=== PATIENT | female | born 1960 | race Caucasian/White ===

== ENCOUNTER 2023-01-15 15:12 | Emergency (ER) | payer BC, SELFPAY ==
[2023-01-15 15:20] VITALS: BP 127/84; PULSE 70; RESP 18; TEMP 36.8; O2SAT 100; BMI 28.8
--- NOTE | 2023-01-15 15:39 | ED.FALL ---
HPI - Fall General Time Seen by Provider: 15:39 Date Seen: 01/15/23 Chief Complaint: Fall/Minor Trauma Stated Complaint: Fell, hit head/hands/knees Time Seen by Provider: 01/15/23 15:24 Source: patient and RN notes reviewed Mode of arrival: ambulatory Limitations: no limitations History of Present Illness HPI Narrative: Patient is a 62-year-old female that is ambulatory to the ED of her own accord. She tripped going into a store down [facility]. It had a small step up that she did not notice at the time as she was reading the sign on the door. She fell forward hitting her left forehead on the edge of the door jam. No loss of consciousness, no neck pain. She did sustain a laceration that did bleed. She has a little bruising outside the left lower eyebrow. Denies any visual changes. She has a mild headache. She did bruise her right elbow and then land on her knees, states she has bruising on her knees. She can mobilize her elbow, can ambulate on her legs without any bony pain per her report. Did discuss imaging of her elbow and her knees but she declines. She states her tetanus is up-to-date. Nothing else was injured. She is most worried about her head. Did discuss head CT imaging which she would like us to do. Reviewed with her that at this time she very likely does not have significant intracranial bleeding or pathology but sometimes we do find small brain bleeds which would require follow-up. She would like to proceed with a head CT. She understands that the laceration on her forehead is recommended for closure. I would recommend suturing. She denies any other indication for the fall other than the step being there. There was nothing cardiac or loss of consciousness that precipitated this fall. She is feeling like a headache is developing. complaint: fall Related Data Allergies Allergy/AdvReac Type Severity Reaction Status Date / Time fluconazole [From Diflucan] Allergy Verified 01/15/23 15:19 Review of Systems Status of ROS: Reports: 10 or more systems reviewed and unremarkable except as noted in History and below [facility] PFS Social History Smoking Status: Never smoker Do you use any of these nicotine containing products: None Second hand tobacco smoke exposure: No How often do you have a drink containing alcohol: never How often do you have six or more drinks on one occasion: Never AUDIT-C Alcohol total score: 0 Non-prescribed substance use: denies use service: No Exam Const: Vital Signs, click to edit/add: Vital Signs - 24 hr 01/15/23 15:20 Temperature 98.2 F Pulse Rate [Pulse Oximeter] 70 Respiratory Rate 18 Blood Pressure [Ri ght Forearm] 127/84 Pulse Oximetry 100 Oxygen Delivery Me thod Room Air Documenting provider has reviewed patient's vital signs: yes Common normals: no apparent distress, average body habitus, oriented x3, no limitations, healthy appearing, alert and well nourished General appearance: cooperative, comfortable, well kempt and well developed HENMT: Common normals: hearing grossly normal bilaterally, external ears normal, external nose normal, nasal mucous membranes and turbinates normal, moist oral mucous membranes and oropharynx normal Nose: external nose normal and nasal mucous membranes and turbinates normal External ear: external ears normal Other: Feels like her teeth her occluding normally. Has a vertically situated laceration that is about 2 cm through the subcutaneous tissue on the left frontal forehead. No active bleeding at this time. Wound is mildly gaping and would benefit from closure with stitches. Small little bruise on the undersurface of the lateral aspect of her left eyebrow. Eye: Common normals: PERRL, EOMs intact bilaterally, conjunctivae normal and no scleral icterus Conjunctiva: conjunctiva(e) normal Pupil: PERRL Neck & C-Spine: Common normals: full ROM (No pain with range of motion, no midline tenderness, no paraspinous tendern), no lymphadenopathy and supple Resp: Common normals: normal respiratory effort, no retractions, no use of accessory muscles and clear to auscultation bilaterally Auscultation: clear to auscultation bilaterally Cardio: Common normals: regular rate, regular rhythm, S1 normal heart sound, S2 normal heart sound, no gallops, no clicks and no murmurs Rate: regular rate Rhythm: regular rhythm Heart sounds: S1 normal and S2 normal Extremity: Other: Do not see any open wounds over the elbow. She complains of some pain over the olecranon process but not while I am examining or palpating the olecranon. There is no significant effusion, no pain with flexion extension supination pronation, range of motion does not seem to elicit any pain. Motor function is normal throughout the arm. She has a very mild superficial bruise over the anterior left knee, larger bruise over the anterior right knee with a little bit of inferior abrasion below it. There is no joint line tenderness, patient states she can not ambulate without any pain in the knees. There is superficial pain of the bruised areas but no evidence of any underlying bony pathology on examination. Neuro: Foreign Coma Scale: document GCS findings Foreign coma scale eye opening: Spontaneous (4) Foreign coma scale verbal response: Orientated (5) [place] coma scale motor response: Obey commands (6) Foreign coma scale total score: 15 Common normals: oriented x3, moves all extremities, no focal motor deficits and gait normal Sensorium/orientation: alert Psych: Appearance: well kempt Course Course Hospital Course: Will anesthetize this wound, have ED staff irrigate and then plan for closure with sutures. She is declining imaging of her elbow in her knees, agree that it is likely she does not have any underlying fractures but did offer to x-ray her right elbow in both of her knees. Will proceed with a head CT to rule out any intracranial pathology or fracture. She states her tetanus is up-to-date Vital Signs Vital signs: Initial Vital Signs Temperature 98.2 F 01/15/23 15:20 Temperature Source Temporal Artery Scan 01/15/23 15:20 Pulse Rate 70 01/15/23 15:20 Pulse Rhythm Regular 01/15/23 15:20 Respiratory Rate 18 01/15/23 15:20 Blood Pressure 127/84 01/15/23 15:20 Blood Pressure Mean 98 01/15/23 15:20 Blood Pressure Position Supine 01/15/23 15:20 Pulse Oximetry 100 01/15/23 15:20 Oxygen Delivery Method Room Air 01/15/23 15:20 Vital Signs Temperature 98.2 F 01/15/23 15:20 Pulse Rate 70 01/15/23 15:20 Respiratory Rate 18 01/15/23 15:20 Blood Pressure 127/84 01/15/23 15:20 Pulse Oximetry 100 01/15/23 15:20 Oxygen Delivery Method Room Air 01/15/23 15:20 Temperature 98.2 F 01/15/23 15:20 Pulse Rate 70 01/15/23 15:20 Respiratory Rate 18 01/15/23 15:20 Blood Pressure 127/84 01/15/23 15:20 Pulse Oximetry 100 01/15/23 15:20 Oxygen Delivery Method Room Air 01/15/23 15:20 MDM - Fall Imaging Data CT scan - head: Attestation: I have reviewed the pertinent imaging results. Radiologist's impression: Patient: TAMIKO ANTUNEZ Facility:?[facility] Patient ID:?[id number] Site Patient ID:?[id number]. Site :?[id number] Study:?CT Head w/o-01/15/2023 4:53:30 PM Ordering Physician:?Wilber Kurtz Final Report: INDICATION: Fall with head laceration. TECHNIQUE: CT head without contrast. COMPARISON: None. FINDINGS: CSF spaces: Within normal limits for age. Brain parenchyma and extra-axial spaces: The guthrie-white differentiation is normal. No sign of mass, hemorrhage, or midline shift. No extra-axial fluid collection. Skull base and calvarium: The visualized paranasal sinuses and mastoid air cells demonstrate no acute or significant findings. The visualized orbits are grossly unremarkable. No skull fractures. IMPRESSION: Unremarkable noncontrast head CT. Please note that all CT scans at this facility use dose modulation, iterative reconstruction, and/or weight-based dosing when appropriate to reduce radiation dose to as low as reasonably achievable. Dictated by Issa Jones MD @ 01/15/2023 5:15:25 PM (Electronic Signature) Discharge Plan Discharge Clinical Impression: Forehead laceration, Fall, Contusion of knee, left, Contusion of elbow, right, Contusion of knee, right Patient Disposition: Home, Self-Care Condition: Stable Instructions: Care For Your Stitches (ED), Laceration (ED), Contusion in Adults (ED) Additional Instructions: Need to schedule a clinic follow-up in about 1 weeks time to assess the wound for suture removal. Use bacitracin or Vaseline to the wound 3 to 4 times a day. May shower, be careful to not disrupt the stitches. There is concern for infection, please seek re-evaluation. Can use bandage over the wound if needed. Use Tylenol and ibuprofen if needed for pain control, follow bottle directions for dosing. Can ice your forehead, right elbow, anterior knees to help diminish pain and swelling. Activity Level: Activity as Tolerated Follow Up/Referrals: Provider,Not a Local [Primary Care Provider] - Stand Alone Forms: [facility] Info Instructions Procedures Laceration Laceration 1: Pre procedure diagnosis: Forehead laceration Post procedure diagnosis: Same Site marking: not applicable Verification/time out: correct patient, correct site and correct procedure Name of person performing procedure: Tessie Merino Site: face Side (If applicable): left (Forehead) Size (cm): 2 Description: linear Depth: simple, single layer Local Anesthetic: lidocaine 1% and with epi Amount of anesthesia used (mL): 5 (About 4 mL infiltrated with good affect) Pre-repair: wound explored, irrigated extensively and deep structures intact Skin layer closed with: other (Ethilon) Size (cm): 4-0 Number of sutures: 6 Technique: simple, interrupted Wound cleansing: sterile water Estimated blood loss (if any): none Conclusion: patient tolerated procedure
--- OUTSIDE RECORDS SUMMARY | 2023-01-15 16:09 | XMS_ITS | Continuity of Care Document ---
Author Name Unknown Organization [facility] Address [address] [address] [place] [address] Phone Care Team Providers Care Bid Clerk Name Role Phone Mele Ahuja CRNA Unavailable Unavailable Allergies, Adverse Reactions, Alerts Substance Reaction Status Criticality fluconazole itchy Active No Information metronidazole Active No Information Medications Medication Instructions Dosage Effective Dates (start - stop) Status Comments omeprazole 20 mg capsule,delayed release take 1 capsule by ORAL route every day before a meal 20 MG - Active simvastatin 20 mg Tab Take 1 tablet by mouth daily - Active aspirin 81 mg Tab Take one tablet by mouth daily - Active bupropion HCl SR 150 mg Tab Take one tablet by mouth daily - Active fluoxetine 20 mg Cap Take two tablets by mouth daily - Active VITAMIN D3 (unknown strength) take 1 by Oral route every day Not Available - Active lansoprazole 30 mg Cap, Delayed Release Take one tablet by mouth daily - No Longer Active Procedures Procedure Date Colonoscopy Flex; Dx (sep Pro) 20 Colonoscopy Flex; Dx (sep Pro) 10 Advance Directives Directive Yes / No Effective Date File Name No Information Encounters Encounter Description Practice Location Reason(s) For Visit Diagnoses Date Provider Providers Copied on Encounter [facility], [address] [address], [place], [place], [id number], [place] tel:[phone] Meno [facility] No Information 0 [place] Shabazz. [address] [facility], [address], [id number], [place]. tel:[phone] Referring Provider: Gerardo Guzman, [address] [address], [place], [address]. tel:[phone] [facility], [address] [address], [facility] [place], [id number], [place] tel:[phone] [facility] Screening ColonoscopyEnco unter for screening for malignant neoplasm of colon Sep-2 0 Melchor Carrillo. [address] [facility], [facility] [[email or web address] [address], [place], [place], [id number], [place]. tel:[phone] Referring Provider: Carolann Dailey MD, [address], [place], [address]. [phone] [facility], [address] [address], [facility] [place], [place], [id number], [place] tel:[phone] [facility] Endoscopy Center No Information Sep-2 0 Jim Cain. [address] [facility], [facility] [[email or web address] [address], [place], [place], [id number], [place]. tel:[phone] [facility], [address] [address], [facility] [place], [place], [id number], [place] tel:[phone] [facility] Endoscopy Center Colon Cancer ScreeningColon Cancer Screening 3-201 0 No Information Referring Provider: Qamar OSORIO V, [address], [place], [address]. tel:[phone] Family History Family Member Type Diagnosis Age At Onset Son Problem (finding) Alive and well Father Problem (finding) alcoholism Mother Problem (finding) gallbladder disease Father Problem (finding) malignant neoplasm of l niranjan Daughter Problem (finding) Alive and well Father Problem (finding) Thyroid disorder Brother Problem (finding) alcoholism Immunizations Vaccine Date Status Comments tetanus toxoid, reduced diphtheria toxoid, and acellular pertussis vaccine, adsorbed administered Note: FLORES luque i-directional interface ; Source: Other Registry zoster vaccine recombinant administered N ote: [facility] bi-directional interface ; Source: Other Registry influenza virus vaccine, unspecified formulation administered Note: [facility] bi-di rectional interface ; Source: Other Registry Influenza administered Note: [facility] bi-d irectional interface ; Source: Other Registry Fluzone Quad 6mo or older administered Note: [facility] bi-direct ional interface ; Source: Other Registry Influenza administered Note: [facility] bi-d irectional interface ; Source: Other Registry Influenza, injectable, Madin Lenore Canine Kidney, preservative free, quadrivalent administered Note: RI IC bi- directional interface ; Source: Other Registry influenza virus vaccine, unspecified formulation administered Note: [facility] bi-di rectional interface ; Source: Other Registry Fluzone Quad 6mo or older administered Note: [facility] bi-direct ional interface ; Source: Other Registry Fluzone Quad 6mo or older administered Note: [facility] bi-direct ional interface ; Source: Other Registry Engerix-B administered Note: [facility] bi-d irectional interface ; Source: Other Registry Influenza, seasonal, injectable administe red Note: [facility] bi- directional interface ; Source: Other Registry Engerix-B administered Note: [facility] bi-d irectional interface ; Source: Other Registry Engerix-B administered Note: [facility] bi-d irectional interface ; Source: Other Registry Influenza, seasonal, injectable administe red Note: [facility] bi- directional interface ; Source: Other Registry Influenza, seasonal, injectable administe red Note: [facility] bi- directional interface ; Source: Other Registry Influenza, seasonal, injectable administe red Note: [facility] bi- directional interface ; Source: Other Registry tetanus toxoid, reduced diphtheria toxoid, and acellular pertussis vaccine, adsorbed administered Note: [facility] b i-directional interface ; Source: Other Registry Influenza, seasonal, injecta ble, preservative free administered Note: [facility] bi-direct ional interface ; Source: Other Registry zoster vaccine, live administered Note: M [facility] bi-directional interface ; Source: Other Registry Payers Payer name Insurance type Covered alliance party ID Authoriza tijimena(s) [employer] Of [facility] [id number] Social History Type Description Quantity Date Captured Comments Sex Female Smoking Status No Information Chief Complaint And Reason For Visit No Information Reason For Referral Reason For Referral No Information Plan Of Treatment Date Type Action Status No Information History Of Present Illness Encounter Date Complaint History Of Prese nt Illness No Information Functional Status Date Functional Assessmen t No Information Instructions Date Instruction Additional Infor verna Colon Cancer Prevention Related to Screening Colonoscopy Assessments Type Assessment Date No Information Patient Care Teams Name Effective Dates (start - stop) Status Members No Information
[2023-01-15] MEDS: ACETAMINOPHEN 500 MG TABLET 1000 MG PO (16:11)
[2023-01-15] MEDS: diazePAM 5 MG TABLET 2.5 MG PO (16:11)
--- NOTE | 2023-01-15 16:27 | CRLHL7_ITS ---
For Patients: As a result of the Century Cures Act, medical imaging exams and procedure reports are released immediately into your electronic medical record. You may view this report before your referring provider. If you have questions, please contact your health care provider. INDICATION: Fall with head laceration. TECHNIQUE: CT head without contrast. COMPARISON: None. FINDINGS: CSF spaces: Within normal limits for age. Brain parenchyma and extra-axial spaces: The guthrie-white differentiation is normal. No sign of mass, hemorrhage, or midline shift. No extra-axial fluid collection. Skull base and calvarium: The visualized paranasal sinuses and mastoid air cells demonstrate no acute or significant findings. The visualized orbits are grossly unremarkable. No skull fractures. IMPRESSION: Unremarkable noncontrast head CT. Please note that all CT scans at this facility use dose modulation, iterative reconstruction, and/or weight-based dosing when appropriate to reduce radiation dose to as low as reasonably achievable. Dictated by Issa Jones MD @ 01/15/2023 5:15:25 PM (Electronically Signed)
== END 2023-01-15 17:28 | disposition home or self-care (01) ==
PROVIDERS: Emergency Provider Family Medicine
DX: S01.81XA Laceration without foreign body of other part of head, initial encounter (principal); S80.02XA Contusion of left knee, initial encounter; S80.01XA Contusion of right knee, initial encounter; S50.01XA Contusion of right elbow, initial encounter; W01.198A Fall on same level from slipping, tripping and stumbling with subsequent striking against other object, initial encounter; Y93.01 Activity, walking, marching and hiking; Y92.512 Supermarket, store or market as the place of occurrence of the external cause
CPT/HCPCS: 12011; 70450; 99283; 99284; A9270

== ENCOUNTER 2025-04-18 13:42 | Emergency (ER) | payer MEDICARE, SELFPAY ==
[2025-04-18] VITALS (23 sets, daily range): BP systolic 106–128; BP diastolic 60–99; PULSE 59–82; RESP 12–20; TEMP 35.8; O2SAT 93–99; BMI 29.2
--- OUTSIDE RECORDS SUMMARY | 2025-04-18 13:44 | XMS_ITS | Clinical Summary ---
Author Organization [facility] Address [address] [place] [address] Care Team Providers Care Bottle Hop Name Role Phone Carolann Agosto MD Primary Care Pro vider Allergies Active Allergy Reactions Criticality Noted Date Comments Fluconazole Rash 06/15/2006 Nitroimidazoles Rash 06/15/2006 Metronidazole *Unknown 01/26/2010 Unlisted Allergen (Include Detail In Comments) Rash 05/26/2015 Paraphenylenediamine Medications blood-glucose meterIndications:Diabet es mellitus without complication (HC) Dispense meter as covered by pt ins. E11.9 NIDDM type II - Test 1 time/day. 1 Device 11/10/19 19 Active aspirin (ECOTRIN) 81 mg enteric coated tabletIndications:Aspir in long-term use Take 1 tablet by mouth once daily. DO NOT CRUSH OR CHEW. 30 tablet 11 04/02/20 20 Active fexofenadine (EVANGELINA) 180 mg tabletIndications:Seaso nal allergic rhinitis due to pollen,Seasonal allergies Take 1 tablet by mouth once daily. 90 tablet 3 07/18/20 20 Active blood sugar diagnostic (Contour Next Test Strips) stripIndications:Diabet es mellitus without complication (HC) TEST 1 TIME DAILY 100 Each 3 11/30/19 23 Active lancets (Microlet Lancet)Indications:Diab etes mellitus without complication (HC) Test 1 time/day 100 Each 3 11/30/19 23 Active latanoprost (XALATAN) 0.005 % ophthalmic solution INSTILL ONE DROP INTO RIGHT EYE AT BEDTIME* 04/15/20 23 Active acetaminophen (TYLENOL ORAL) Take by mouth. Active omeprazole (PRILOSEC) 40 mg Delayed-Release capsuleIndications:Farrah roesophageal reflux disease, unspecified whether esophagitis present Take 1 Capsule (40 mg) by mouth once daily before a meal. 90 Capsule 3 05/17/20 24 Active atorvastatin 20 mg tabletIndications:Pure hypercholesterolemia Take 1 Tablet (20 mg) by mouth once daily. 90 Tablet 3 01/22/20 25 Active buPROPion 150 mg Extended-Release tabletIndications:Anxie ty state Take 1 Tablet (150 mg) by mouth once daily. 90 Tablet 3 01/22/20 25 Active FLUoxetine 40 mg capsuleIndications:Anxi ety state Take 1 Capsule (40 mg) by mouth once daily in the morning. 90 Capsule 3 01/22/20 25 Active triamcinolone 0.1 % ointmentIndications:Pru vanessa nodularis Apply topically to affected area(s) two times daily. Do not use on face, genitals, or in body folds. 453.6 g 2 01/22/20 25 Active ascorbic acid (vitamin C) (Vitamin C) 500 mg tablet 01/26/20 25 Active Ferrous Sulfate 27 mg iron tab 01/25/20 25 Active Active Problems Problem Noted Date Diagnosed Date Glaucoma of right eye 01/16/2024 Depression, recurrent 01/16/2024 Allergic conjunctivitis of both eyes 07/18/2020 Hematochezia 07/18/2020 Seasonal allergies 07/18/2020 Renal cyst 12/05/2019 Overview (12/05/2019): 18 mm simple renal cyst, 2016 CT Anemia 12/06/2014 Urinary incontinence, mixed 08/16/2012 Pure hypercholesterolemia 07/10/2008 Papanicolaou smear of cervix with low grade squamous intraepithelial lesion (LGSIL) 02/13/2008 Esophageal reflux 01/02/2007 Attention deficit disorder without mention of hy peractivity 01/02/2007 DIABETES MELLITUS TYPE II 10/13/2006 Anxiety state, unspecified Resolved Problems Problem Noted Date Diagnosed Date Resolved Date Asthma, unspecified asthma s everity, unspecified whether complicated, unspecified whether persistent 04/24/2021 11/20/2021 HLD (hyperlipidemia) 08/08/2014 015 Chest pain 08/08/2014 03/24/2015 Low back pain 07/15/2008 03/24/2015 Neck pain 07/15/2008 03/24/2015 Thoracic spine pain 07/15/2008 03/24/20 15 Muscular deconditioning 07/15/200802/25 Need for desensitization to allergens 01/02/2007 03/24/2015 Encounters Date Type Department Care Team Description 04/16/2025 Telephone [facility] [id number] [place] [address] Julian Santos, PT Failed Appointment (Spoke with patient regarding missed apt. and reminded of upcoming appointment. Patient noting a last minute emergency came up and tried to alert the clinic but was unable to. Pt. noting she intends on attending next weeks apt.) 04/09/2025 10:45 AM CDT - 04/09/2025 11:59 PM CDT Hospital Encounter [facility] [address] [address] Carolann Agosto MD Eliason, Andrea, PT 04/09/2025 Travel 03/12/2025 2:58 PM CDT - 03/12/2025 11:59 PM CDT Hospital Encounter [facility] [address] [address] Carolann Agosto MD Press, Tosha, DPT 03/12/2025 Travel 03/07/2025 12:53 PM CDT - 03/07/2025 11:59 PM CDT Hospital Encounter [facility] [address] [address] Carolann Agosto MD Eliason, Andrea, PT 03/07/2025 Travel 02/20/2025 10:15 AM CDT - 02/20/2025 11:59 PM CDT Hospital Encounter [facility] [address] [address] Carolann Agosto MD Holm, Kaitlyn A, PT Chronic right shoulder pain 02/20/2025 Travel 02/16/2025 Orders Only [facility] [address] [place] [address] Carolann Agosto MD Lab 02/16/2025 Orders Only [facility] [address] [place] [address] Carolann Agosto MD <No scans attached> 02/13/2025 Telephone [facility] [address] [place] [address] [address] Carolann Agosto MD Referral (Physical Therapy ) 02/04/2025 1:25 PM CDT Telemedicine [facility] [address] [place] [address] [address] Carolann Agosto MD Telehealth (Anemia F/U) 02/04/2025 Travel 02/01/2025 9:15 AM CDT Orders Only [facility] [address] [place] [address] Lab, [facility] 01/31/2025 Travel 01/30/2025 2:30 PM CDT Ancillary Procedure [facility] [address] [place] [address] 01/30/2025 Travel 01/22/2025 Orders Only [facility] [address] [place] [address] Carolann Agosto MD <No scans attached> 01/21/2025 2:30 PM CDT Office Visit [facility] [address] [facility] [address] [place] [address] Rosa Horne, DO Derm Problem 01/21/2025 10:05 AM CDT Office Visit [facility] [address] [place] [address] Carolann Agosto MD Diabetes; Medicare WELCOME Visit 01/21/2025 Travel 01/18/2025 Orders Only [facility] Scanner 1 scan: (1-Ord) [place] [facility]OLOGY, INTERSTIM, OVERACTIVE BLADDER, 01/18/2025 from Last 3 Months Immunizations Immunization Administration Dates Next Due AMB INFLUENZA, IIV4 (AGE=>6M OS) MDV (Flu Clinic Only) 06/26/2020 AMB Influenza, IIV4 PF (=>6 mos Flulaval,Fluzone Fluarix)(Flu Clinic Only) 08/18/2015 COVID-19 VACCINE SPIKEVAX (M ODERNA 50MCG/0.5ML) 12YO+ PFS 10/01/2024,07/20/2023 COVID-19 vaccine (Moderna 100mcg/0.5mL) PF, MDV 09/28/2021,01/04/2021,12/07/2020 COVID-19 vaccine (Moderna 50mcg/0.5mL) 12YO+ BIVALENT PF, MDV 09/11/2022 Covid-19 Vaccine (Unspecified) 09/28/2021,2020,07/10/2021 Hepatitis B (Adult) 10/29/2013,05/03/2013,2012 Hepatitis B, Unspecified 10/29/2013,05/03/2013,0 03/21/2013 Influenza RIV4 (Age 18+ Year s) PRESERV FREE 09/11/2022,07/30/2021,07/12/2020 Influenza Virus, Unspecified 06/26/2023, 07/10/2022,07/10/2021,2020,07/10/2019,07/05/2019,06/30/2017,1 ,07/10/2014,07/09/2013 Influenza, IIV3 (Age 6-35 mos) 07/28/2009 Influenza, IIV3 (Age >=3 years) 07/31/20 13,07/06/2012,07/09/2011,2009 Influenza, IIV4 07/20/2023,06/23/2018,07/11/2014 Influenza, IIV4 (=>6mos) MDV 07/05/2019,06/30/20 17 Influenza, Inactivated IIV3 (Age 65+ Years) Preserv Free 10/01/2024 Influenza,CCIIV4 PRESERV FREE 06/26/2017 Pneumococcal Poly,23-Valent (Pneumovax) 07/10/2022,07/10/2021,04/24/2021 Pneumococcal, Unspecified 06/26/2023,07/10/2021, 06/26/2021 Tdap 02/15/2021,04/02/2020,01/12/2010 Zoster (Shingrix-RZV, recombinant) 08/04/2020, Zoster (Zostavax-ZVL, live) 05/23/2005, 1 Family History Medical History Relation Name Comments Stroke Brother 2 Fatal Brain Ane urysm age 36 Allergies Child Saad Alcoholism Father Arthritis Father Heart Disease Father [place] age 48: tri ple CABG x2, bilat carotid artery disease Hypertension Father Lung cancer Father lung age 7 2 Alzheimer's disease Mother Arthritis Mother Hyperlipidemia Mother Hypertension Mother Macular degeneration Mother Cancer-breast Other Pat. Gr. Grma Diabetes Paternal Grandmother Glaucoma Sister Asthma Son Felipe Cancer-ovarian No Family History Relation Name Status Comments Brother 1 (Age 36) Brain Aneu rysm Brother 2 Brother 3 Child Father (Age 73) lung CA Maternal Grandmother Mother Other Paternal Grandmother Sister Son Social History Tobacco Use Types Packs/Day Years Used Date Smoking Tobacco: Former Cigarettes 2 9.2 0 09/26/1972 - 12/15/1981 Smokeless Tobacco: Never Alcohol Use Standard Drinks/Week Comments No 0 (1 standard drink = 0.6 oz pur e alcohol) Recovering since 1980 PHQ-2 Answer Date Recorded PHQ-2 TOTAL SCORE 0 01/21/2025 Social Connections Answer Date Recorded Do you often feel lonely or isolated from those around you? 0 01/21/2025 Financial Resource Strain Answer Date R ecorded Difficulty of Paying Living Expenses 3 01/21/2025 Difficulty of Paying Living Expenses Not on file 01/21/2025 Food Insecurity Answer Date Recorded Do you worry your food will run out before you are able to buy more? 1 01/21/2025 Transportation Needs Answer Date Record ed Does lack of transportation keep you from medica l appointments? 1 01/21/2025 Does lack of transportation keep you from work, meetings or getting things that you need? 1 01/21/2025 Housing Stability Answer Date Recorded What is your housing situation today? 1 01/21/2025 Utilities Answer Date Recorded Do you have trouble paying f or utilities (for example, heat, electricity, water, phone)? 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 Not on file Not on file Not on f ile Obstetrics History Para Term AB IAB SAB Ectopic Multiple Livin g Live Births 8 3 3 0 2 0 2 0 0 2 3 Date Outcome GA Total Labor Labor/2nd/3rd Weight Sex Type Anes PTL Joelle A1 A5 Name Clin SAB SAB Term Term Term 1978 40w 0d 5h 00m/ 2.15 kg (4 lb 12 oz) F Vag Livin g Comments:Stillborn 1981 40w 0d 4 kg (8 lb 13 oz) M Vag Livin g 1995 40w 0d 3.69 kg (8 lb 2 oz) M VAGINAL FORC Livin g Last Filed Vital Signs Vital Sign Reading Time Taken Comments Blood Pressure 112/80 01/21/2025 10:39 AM CDT Pulse 76 01/21/2025 10:39 AM CDT Temperature 36.8 C (98.2 F) 10/01/2024 10:11 AM CUSTOMER RESOURCE SPECIALIST Respiratory Rate 19 12/28/2022 1:04 PM CDT Oxygen Saturation 98% 10/01/2024 10: 11 AM CUSTOMER RESOURCE SPECIALIST Inhaled Oxygen Concentration - - Weight 76.1 kg (167 lb 12.8 oz) 025 10:39 AM CDT Height 160 cm (5' 2.99) 01/21/2025 10: 39 AM CDT Body Mass Index 29.73 01/21/2025 10:39 AM CDT Plan of Treatment Upcoming Encounters Date Type Department Care Team (Late st Contact Info) Description 04/23/2025 11:45 AM CDT Appointment [facility] [address] [place] [address] Tosha Penaloza, DPT [address] [address] 04/30/2025 11:45 AM CDT Appointment [facility] [address] [place] [address] Clara Fulton, PT [address] [place] [address] 06/04/2025 2:30 PM CDT Office Visit [facility] [address] [address] [place] [address] [place] [address] 06/13/2025 12:55 PM CDT Office Visit [facility] [address] [place] [address] Carolann Agosto MD [address] [place], [place] [id number] Health Maintenance Due Date Last Done Comments HIV for age 15-65 1974 Pneumococcal series for age 50+ (2 of 2 - PCV) 06/26/2024 06/26/2023, 07/10/2022, 07/10/2021, Additional history exists DEXA/DXA scan for age 65+ 2024 12/14/2022, COVID-19 vaccine series ( season) 2025 10/01/2024, 07/20/2023, 09/11/2022, Additional history exists Influenza Vaccine (#1) 2025 , 07/20/2023, 06/26/2023, Additional history exists BMI (ht and wt on same day) for age 18+ 01/21/2026 01/21/2025, 10/01/2024, 05/17/2024, Additional history exists Medicare Wellness for age 65+ 01/22/2026 01/21/2025 Depression screening for age 12+ 01/29/2026 01/29/2025, 01/21/2025, 01/21/2025, Additional history exists Mammogram for age 45-75 01/30/2026 01/31/20 25, 08/10/2023, 11/09/2022, Additional history exists Pap test for age 21-65 02/24/2028 , 02/23/2023, 07/23/2019, Additional history exists Lipids for age 45-75 01/21/2030 01/21/2025, 01/16/2024, 11/29/2022, Additional history exists Colonoscopy through age 75 06/23/2030 06/23/2020, Tetanus booster 02/15/2031 02/15/2021, 0704/2020, 01/12/2010 RSV vaccine for adults or (1 - 1-dose 75+ series) 2034 Hepatitis B series for 19+ Completed 10/29, 10/29/2013, 05/03/2013, Additional history exists Hepatitis C screening for ag e 18-79 Completed 04/02/2020 Zoster (shingles) series for age 50+ Completed 08/04/2020, 04/02/2020, 05/23/2005, Additional history exists Medical Devices Implanted Type Area Forensic Investigator Device Identifier Shelf Expiration Date Model / Serial / Lot Lead Tined 28cm Interstim - [id number] Implanted:Qty: 1 on 08/01/2014 by Britany Longoria MD at [facility] Right: Sacrum Medtr[employer] Pain Therapy 02/11/2018 [id number] / / [id number] Stimulator Neuro Interstim Ii - [id number] Implanted:Qty: 1 on 08/01/2014 by Britany Longoria MD at [facility] Right: Sacrum [employer] Pain Therapy 07/23/2015 [id number]# / [id number] / [id number] - [id number] Implanted:Qty: 1 on 12/06/2014 by Britany Longoria MD at [facility] N/A: Vagina Coloplast Yesi 01/24/2016 [id number] / [id number] / [id number] Description:Altis Single Inc ision Sling Lead Kit 4.32mm Spacing 28cm Length Interstim - [id number] Implanted:Qty: 1 on 11/25/2021 by Jillian Simmons MD at [facility] N/A: Buttock Medtronic Pain Therapy 04/27/2023 [id number] / / [id number] Medtronic Interstim X Implanted:Qty: 1 on 11/25/2021 by Jillian Simmons MD at [facility] N/A: Buttock Medtronic 05/23/2023 [id number] / [id number] / Procedures Procedure Name Priority Date/Time Associated Diagnosis Comments OCCULT BLOOD IFOBT STOOL Routine 02/12/2025 1:00 PM CDT Iron deficiency anemia, unspecified iron deficiency anemia type PERIPHERAL BLD MORPHOLOGY Routine 02/01/2025 9:13 AM CDT Anemia of unknown etiology BASIC METABOLIC PANEL Add On 02/01/2025 9:13 AM CDT Hyponatremia CBC WITH AUTO DIFFERENTIAL Routine 02/01/2025 9:13 AM CDT Anemia of unknown etiology FERRITIN Routine 02/01/2025 9:13 AM CDT Anemia of unknown etiology IRON PLUS IRON BINDING CAP Routine 02/01/2025 9:13 AM CDT Anemia of unknown etiology RETICULOCYTES Routine 02/01/2025 9:13 AM CDT Anemia of unknown etiology CBC WITH AUTO DIFFERENTIAL Routine 02/01/2025 9:13 AM CDT Anemia of unknown etiology XR MAMMO LION BILAT SCREEN Routine 01/30/2025 3:13 PM CDT Visit for screening mammogram BASIC METABOLIC PANEL Routine 01/21/2025 10:20 AM CDT DIABETES MELLITUS TYPE II LIPID PANEL W REFLEX MEASURED LDL Routine 01/21/2025 10:20 AM CDT Pure hypercholesterolemia HEMOGLOBIN Routine 01/21/2025 10:20 AM CDT Low hemoglobin HEMOGLOBIN A1C MONITORING (POCT) Routine 01/21/2025 10:19 AM CDT DIABETES MELLITUS TYPE II SCAN-OPERATIVE/PROC EDURE REPORT 01/18/2025 12:00 AM CDT HPV HIGH RISK Routine 02/23/2023 12:00 PM CDT XR DXA BONE DENSITY 2 SITES AXIAL Routine 12/14/2022 2:56 PM CDT Asymptomatic postmenopausal state SCAN-COLONOSCOPY 06/23/2020 8:30 AM CDT ANTI HCV Add On 04/02/2020 9:34 AM CDT Need for hepatitis C screening test from Last 3 Months or Most Recently Relevant to Health Maintenance Results * OCCULT BLOOD IFOBT STOOL (02/12/2025 1:00 PM CDT) STOOL BLOOD ,IFOBT Negative Negative 02/19/2025 8:00 PM CDT [facility] Stool STOOL SPECIMEN / Unknown Non-Blood / Unknown 02/12/2025 1:00 PM CDT 02/16/2025 3:17 PM CDT us Carolann Agosto MD LABORATORY F inal Result [facility] [address] [place] [address], * (ABNORMAL) CBC WITH AUTO DIFFERENTIAL (02/01/2025 9:13 AM CDT) WHITE BLOOD COUNT 7.8 4.5 - 11.0 thou/cu mm 02/01/2025 4:03 PM [facility] RED BLOOD COUNT 4.14 4.00 - 5.20 mil/cu mm 02/01/2025 4:03 PM [facility] HEMOGLOBIN 9.8(L) 12.0 - 16.0 g/dL 02/01/2025 4:03 PM [facility] HEMATOCRIT 31.9(L) 33.0 - 51.0 % 02/01/2025 4:03 PM [facility] MCV 77(L) 80 - 100 fL 02/01/2025 4:03 PM [facility] MCH 23.7(L) 26.0 - 34.0 pg 02/01/2025 4:03 PM [facility] MCHC 30.7(L) 32.0 - 36.0 g/dL 02/01/2025 4:03 PM [facility] RDW 18.4(H) 11.5 - 15.5 % 02/01/2025 4:03 PM [facility] PLATELET COUNT 386 140 - 440 thou/cu mm 02/01/2025 4:03 PM [facility] MPV 10.1 6.5 - 11.0 fL 02/01/2025 4:03 PM [facility] NRBC 0.0 % 02/01/2025 4:03 PM [facility] ABS NRBC 0.0 thou /cu mm 02/01/2025 4:03 PM [facility] % NEUT 65.7 % 02/01/2025 4:03 PM [facility] % LYMPH 21.7 % 02/01/2025 4:03 PM [facility] % MONO 8.1 % 02/01/2025 4:03 PM [facility] % EOS 3.5 % 02/01/2025 4:03 PM CDT [facility] % BASO 0.9 % 02/01/2025 4:03 PM CDT [facility] % IMMATURE GRAN (METAS,MYELOS,CO OS) 0.1 % 02/01/2025 4:03 PM CDT [facility] ABSOLUTE NEUTROPHILS 5.1 1.7 - 7.0 thou/cu mm 02/01/2025 4:03 PM CDT [facility] ABSOLUTE LYMPHOCYTES 1.7 0.9 - 2.9 thou/cu mm 02/01/2025 4:03 PM CDT [facility] ABSOLUTE MONOCYTES 0.6 <0.9 thou/cu mm 02/01/2025 4:03 PM CDT [facility] ABSOLUTE EOSINOPHILS 0.3 <0.5 thou/cu mm 02/01/2025 4:03 PM CDT [facility] ABSOLUTE BASOPHILS 0.1 <0.3 thou/cu mm 02/01/2025 4:03 PM CDT [facility] ABSOLUTE IMMATURE GRANULOCYTES(MET ,MYELOS,PROS) 0.0 <0.3 thou/cu mm 02/01/2025 4:03 PM CDT [facility] Blood BLOOD SPECIMEN / Unknown [facility] Collect / Unknown 02/01/2025 9:13 AM CDT 02/01/2025 9:13 AM CDT us Carolann Agosto MD HEMATOLOGY F inal Result [facility] [address] [place] [address], * PERIPHERAL BLD MORPHOLOGY - ORDER WITH RETIC COUNT AND CBC (02/01/2025 9:13 AM CDT) Case Report Special Hematology Report Case: [id number] Authorizing Provider: Carolann Agosto Collected: 02/01/2025 Krish Alfonso MD Ordering Location: [facility] Received: 02/01/2025 0913 Pathologist: Moustapha Aguilar MD Specimen: Blood 02/04/2025 2:16 PM CDT [facility] Final Diagnosis PERIPHERAL BLOOD: 1. Moderate microcytic, hypochromic anemia consistent with iron deficiency anemia 2. See comment 02/04/2025 2:16 PM CDT [facility] at 1416 CDT Comment The morphologic and laboratory features of this anemia are characteristic of iron deficiency. In the adult population, blood loss is the most common etiology for iron deficiency with gastrointestinal and gynecologic sites (in women) being the most common sites. Malabsorption issues (gastric bypass, Crohn's disease, celiac sprue) and deficient dietary intake are also in the differential. Clinical correlation is recommended. There are no features of hemolysis. This case was also reviewed by Anel Mendoza MT, MS ([facility]). 02/04/2025 2:16 PM CDT [facility] Clinical Information The patient is a 64-year-old female. Pertinent clinical information: New anemia. Per EPIC: Additional history includes diabetes. 02/01/25 09:13 FERRITIN: 16.8 IRON: 24 (L) IRON BINDING CAPACITY : 434 (H) IRON,% SATURATION : 6 (L) UIBC (UNSATURATED) : 410 (H) 02/04/2025 2:16 PM CDT [facility]- ENTRND LABORATORY CBC and Differential HEMATOLOGY PARAMETERS Tested at: [facility] RESULTS EXPECTED VALUES WBC: 7.8 4.5-21l9498/cumm RBC: 4.14 4.00-5.20 mil/cumm HGB: 9.8 12-16 gm/dl DECREASED HCT: 31.9 33-51% DECREASED MCV: 77.0 80-100 fl MICROCYTIC MCH: 23.7 26-34 pg DECREASED MCHC: 30.7 32-36 gm/dl HYPOCHROMIC RDW: 18.4 11.5-15.5% ELEVATED PLT: 386 140-211e2113/uL MPV: 10.1 6.5-11 fl Retic: 1.7 0.5-1.5% ELEVATED Differential Absolute (%) Expected (%) (x10*9/L) (x10*9/L) Neutrophils: 5.1 (65.4) 1.7-7.0 (42-72%) Lymphocytes: 1.7 (21.8) 0.9-2.9 (20-44%) Monocytes: 0.6 (7.7) <0.9 (0-11%) Eosinophils: 0.3 (3.8) <0.5 (0-2%) Basophils: 0.1 (1.3) <0.3 (<3.0%) 02/04/2025 2:16 PM CDT [facility]-C ENTRAL LABORATORY Microscopic Description The final diagnosis is based on microscopic examination of an appropriately stained blood smear. 02/04/2025 2:16 PM CDT [facility]-C ENTRAL LABORATORY Additional Information Interpreted at [facility], Central Laboratory - [address] [place] [address] [address] [address] 02/04/2025 2:16 PM T [facility] EN[facility]AL LABORATORY Blood BLOOD SPECIMEN / Unknown [facility] Collect / Unknown 02/01/2025 9:13 AM CDT 02/01/2025 9:13 AM CDT Comment:CURRENT MEDICATIONSC urrent Outpatient Medications: acetaminophen (TYLENOL ORAL), Take by mouth., Disp: , Rfl: aspirin (ECOTRIN) 81 mg enteric coated tablet, Take 1 tablet by mouth once daily. DO NOT CRUSH OR CHEW., Disp: 30 tablet, Rfl: 11 atorvastatin 20 mg tablet, Take 1 Tablet (20 mg) by mouth once daily., Disp: 90 Tablet, Rfl: 3 blood sugar diagnostic (Contour Next Test Strips) strip, TEST 1 TIME DAILY, Disp: 100 Each, Rfl: 3 blood-glucose meter, Dispense meter as covered by pt ins. E11.9 NIDDM type II - Test 1 time/day., Disp: 1 Device, Rfl: 0 buPROPion 150 mg Extended-Release tablet, Take 1 Tablet (150 mg) by mouth once daily., Disp: 90 Tablet, Rfl: 3 fexofenadine (EVANGELINA) 180 mg tablet, Take 1 tablet by mouth once daily., Disp: 90 tablet, Rfl: 3 FLUoxetine (PROZAC) 20 mg capsule, TAKE ONE CAPSULE BY MOUTH ONE TIME DAILY in combination with 40mg capsule for a total dose of 60mg daily., Disp: 90 Capsule, Rfl: 1 FLUoxetine 40 mg capsule, Take 1 Capsule (40 mg) by mouth once daily in the morning., Disp: 90 Capsule, Rfl: 3 lancets (Microlet Lancet), Test 1 time/day, Disp: 100 Each, Rfl: 3 latanoprost (XALATAN) 0.005 % ophthalmic solution, INSTILL ONE DROP INTO RIGHT EYE AT BEDTIME*, Disp: , Rfl: omeprazole (PRILOSEC) 40 mg Delayed-Release capsule, Take 1 Capsule (40 mg) by mouth once daily before a meal., Disp: 90 Capsule, Rfl: 3 triamcinolone 0.1 % ointment, Apply topically to affected area(s) two times daily. Do not use on face, genitals, or in body folds., Disp: 453.6 g, Rfl: 2 us Carolann Agosto MD HEMATOLOGY F inal Result [facility] [address] [place] [address], * (ABNORMAL) IRON PLUS IRON BINDING CAP (02/01/2025 9:13 AM CDT) IRON 24(L) 37 - 145 ug/dL 02/01/2025 5:13 PM CDT [facility] UIBC (UNSATURATED) 410(H) 112 - 347 ug/dL 02/01/2025 5:13 PM CDT [facility] IRON BINDING CAPACITY 434(H) 250 - 400 ug/dL 02/01/2025 5:13 PM CDT [facility] IRON,% SATURATION 6(L) 14 - 50 % 02/01/2025 5:13 PM CDT [facility] Blood BLOOD SPECIMEN / Unknown [facility] Collect / Unknown 02/01/2025 9:13 AM CDT 02/01/2025 9:13 AM CDT Carolann Agosto MD CHEMISTRY F inal Result Performing Organization Address [facility] de Phone Number [facility] [address] [place] [address], * (ABNORMAL) RETICULOCYTES (02/01/2025 9:13 AM CDT) Pathologist [facility] RETIC% 1.7(H) 0.5 - 1.5 % 02/01/2025 4:03 PM CDT [facility] RETIC (ABSOLUTE) 0.07 0.03 - 0.08 mil/cu mm 02/01/2025 4:03 PM CDT [facility] Blood BLOOD SPECIMEN / Unknown [facility] / Unknown 02/01/2025 9:13 AM CDT 02/01/2025 9:13 AM CDT Carolann Agosto MD HEMATOLOGY F inal Result Performing Organization Address [facility] de Phone Number [facility] [address] [place] [address], * FERRITIN (02/01/2025 9:13 AM CDT) [facility] FERRITIN 16.8 15.0 - 150.0 ng/mL 02/01/2025 5:12 PM CDT [facility] Blood BLOOD SPECIMEN / Unknown [facility] / Unknown 02/01/2025 9:13 AM CDT 02/01/2025 9:13 AM CDT Carolann Agosto MD CHEMISTRY F inal Result Performing Organization Address [facility] Co de Phone Number [facility] [address] [place] [address], * (ABNORMAL) BASIC METABOLIC PANEL (02/01/2025 9:13 AM CDT) Only the most recent of2 resultswithin the time period is included. Pathologist [facility] SODIUM 134(L) 136 - 145 mmol/L 02/04/2025 2:13 PM T [facility] POTASSIUM 5.0 3.5 - 5.1 mmol/L 02/04/2025 2:13 PM T [facility] CHLORIDE 95(L) 98 - 107 mmol/L 02/04/2025 2:13 PM T [facility] CO2,TOTAL 21(L) 22 - 29 mmol/L 02/04/2025 2:13 PM T [facility] ANION GAP 18 5 - 18 02/04/2025 2:13 PM T [facility] GLUCOSE 124(H) 70 - 99 mg/dL 02/04/2025 2:13 PM T [facility] CALCIUM 9.3 8.8 - 10.4 mg/dL 02/04/2025 2:13 PM [facility] Comment: Reference ranges for this test were updated on 07/31/2024 to reflect our healthy population more accurately. Reference range changes are not retroactively applied to results, but previous results using the same methodology can be interpreted in the context of the new reference range. BUN 10 8 - 23 mg/dL 02/04/2025 2:13 PM [facility] CREATININE 0.94(H) 0.50 - 0.90 mg/dL 02/04/2025 2:13 PM [facility] BUN/CREAT RATIO 11 10 - 20 2:13 PM [facility] eGFR 67(L) >90 mL/min/1. 73m2 02/04/2025 2:13 PM [facility] Comment:As of 2021, eG FR is calculated by the CKD-EPI creatinine equation without race adjustment. eGFR can be influenced by muscle mass, exercise, and diet. The reported eGFR is an estimation only and is only applicable if the renal function is stable. Blood BLOOD SPECIMEN / Unknown [facility] / Unknown 02/01/2025 9:13 AM CDT 02/01/2025 9:13 AM CDT Carolann Agosto MD CHEMISTRY F inal Result [facility] [address] [place] [address], * XR MAMMO LION BILAT SCREEN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
--- OUTSIDE RECORDS SUMMARY | 2025-04-18 13:44 | XMS_ITS | Clinical Summary ---
Author Organization [facility] Address [address] [place] [address] Care Team Providers Care Career Resource Specialist Name Role Phone Elsewhere, Pcp Primary Care Provider Unavailabl e Source Comments Patient records contain information from all sites at [facility]. For routine questions regarding patient records, call [phone] during business hours, M-F 8:00 AM - 5:00 PM Central Time. Record requests for emergency care only can be directed to [phone] at any time.[facility] Allergies Active Allergy Reactions Criticality Noted Date Comments Fluconazole Itching 11/07/2018 Metronidazole Itching 11/07/2018 Medications * This document contains information received from the source organization and may not represent a complete record from that organization. omeprazole (PriLOSEC) [address] capsule Take 40 mg by mouth every morning before breakfast. Active bupropion HCl (WELLBUTRIN ORAL) Take by mouth. Activ e aspirin 81 mg chewable tablet Chew 81 mg daily. Active folic acid-vitamin B6,B12 (FOLBEE) 2.5-25-1 mg per tablet Take 1 tablet by mouth daily. Active albuterol (PROVENTIL HFA,VENTOLIN HFA) 90 mcg/actuation inhaler Inhale 2 puffs every 4 (four) hours as needed for wheezing or shortness of breath. 1 Inhaler 9 Active omeprazole (PriLOSEC) [address] capsule Take by mouth. 0 Active fexofenadine (EVANGELINA) 180 mg tablet Take 180 mg by mouth. 0 Active triamcinolone (KENALOG) 0.1 % cream Apply topically. 0 Active FLUoxetine (PROzac) 40 mg capsule Take 40 mg by mouth. 1 Active omega 1-kjt-eyz-fish oil 1,000 mg (120 mg-180 mg) capsule Take 1,000 mg by mouth. 1 Active multivitamin chewable tablet Chew. 1 Active magnesium oxide (MAG-OX) 400 mg (241.3 mg magnesium) tablet Take 400 mg by mouth. 1 Active fluticasone propionate (FLONASE) 50 mcg/actuation nasal spray Administer 2 sprays into nostril(s). 1 Active atorvastatin (LIPITOR) 20 mg tablet Take 20 mg by mouth daily. 1 Active Active Problems Problem Noted Date Diagnosed Date Anxiety Generalized Disorder 06/13/2021 COVID-19 Infection 06/12/2021 Overview (06/13/2021): Ms. Mosquera tested positive for COVID-19. I have reviewed the chart, updated where appropriate and evaluated for the following: Symptoms of COVID-19 infection? Yes Mild-moderate COVID-19 infection? Yes Health Conditions that meet Emergency Use Authorization criteria for eligibility? Yes PCR or antigen testing? Yes Symptom onset date: Don't know The patient is a candidate for monoclonal antibody therapies, based on the information available to review. They will be added to the list of eligible patients. Not all eligible patients will be offered MAB, as the supply is limited and varies daily. If the infusion therapy center is able to offer a monoclonal antibody infusion, a nurse will send an online message and then call the patient to consent for therapy. Patients are prioritized for monoclonal antibody therapy based on their risk for developing severe complications of COVID-19, including hospitalization and . We use the Monoclonal Antibody Screening Score (MASS) to predict risk, and patients with a Monoclonal Antibody Screening score of one or more have an increased risk of severe complications of COVID-19. Patient-reported biometric data, including age and BMI, will be verified at the infusion site. Discrepancies between patient reported information and clinically confirmed data may make the patient ineligible. Jameson Scott M.D., M.P.H. Assessment & Plan (06/13/2021 7:42 AM CDT): Patient to be consented by the Infusion therapy nurses. 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 No 07/17/2024 Hunger Vital Sign Answer Date Recorded Within the past 12 months, y ou worried that your food would run out before you got the money to buy more. Never true 07/17/20 24 Within the past 12 months, t he food you bought just didn't last and you didn't have money to get more. Never true 07/17/2024 PRAPARE - Transportation Answer Date Re corded In the past 12 months, has l ack of transportation kept you from medical appointments or from getting medications? No 06/27 In the past 12 months, has l ack of transportation kept you from meetings, work, or from getting things needed for daily living? No 07/17/2024 Housing Stability Answer Date Recorded What is your living situation today? I have a [facility] place to live 07/17/2024 Comments No Sex and Gender Information Value Date Recorded Sex Assigned at Not on file Legal Sex Female 12:38 PM NURSING PROGRAM CHAIR Gender Identity Not on file Sexual Orientation Not on file Last Filed Vital Signs Vital Sign Reading Time Taken Comments Blood Pressure 126/74 06/15/2022 11:00 AM CDT Pulse 73 06/15/2022 11:00 AM CDT Temperature 36.9 C (98.4 F) 06/15/2022 11:00 AM CDT Respiratory Rate 20 06/15/2022 11:0 0 AM CDT Oxygen Saturation 98% 06/15/2022 11: 00 AM CDT Inhaled Oxygen Concentration - - Weight 77.4 kg (170 lb 10.2 oz) 024 11:07 AM CDT Height 161 cm (5' 3.39) 07/17/2024 11: 07 AM CDT Body Mass Index 29.86 07/17/2024 11:07 AM CDT Plan of Treatment Health Maintenance Due Date Last Done Comments Bone Density Scan (Osteoporosis Screen) 1959 CT Colonography 1959 Cervical/Vaginal Cancer Screening 1959 Cologuard 1959 Diabetic Office Visit with Foot Exam 1959 Dilated Eye Exam 1959 FIT 1959 HIV Screening 1959 Hepatitis C Screening 1959 Office Visit for Blood Pressure Check / Re-check 1959 Urine Albumin 1959 RSV vaccine - (32-36 weeks) or 60+ years (1 - Risk 60-74 years 1-dose series) 2019 Mammogram 11/09/2023 11/09/2022, 08/27, 08/11/2020 COVID-19 Vaccine ( season) 2024 07/20/2023, 09/11/2022, 09/28/2021, Additional history exists Pneumococcal vaccine (50+ years) (2 of 2 - PCV) 06/26/2024 06/26/2023, 07/10/2022, 07/10/2021, Additional history exists Depression Screening (Annual PHQ-2) 09/26/2024 Fall Risk Screen (Annual) 09/26/2024 Hemoglobin A1C 11/17/2024 05/17/2024, 12/26, 09/01/2023, Additional history exists Creatinine Level (Kidney Function Test) 05/17/2025 05/17/2024, 01/16/2024, 09/01/2023, Additional history exists Influenza Vaccine (#1) 2025 3, 06/26/2023, 09/11/2022, Additional history exists Lipid (Cholesterol) Screening 01/15/2029 01/16/2024, 11/29/2022, 10/26/2021, Additional history exists Colonoscopy 06/23/2030 06/23/2020 Colorectal Cancer Screening 06/23/2030 DTaP,Tdap,and Td Vaccines (4 - Td or Tdap) 02/15/2031 02/15/2021, 04/02/2020, 01/12/2010 Hepatitis B Vaccines Completed 10/29/2013, 05/03/2013, 03/21/2013 Zoster Vaccines Completed 08/04/2020, 04/2020, 05/23/2005, Additional history exists IPV Vaccines Aged Out No longer eligi ble based on patient's age to complete this topic Medical Devices Implanted Type Area Belt Splicer Device Identifier Shelf Expiration Date Model / Serial / Lot Bladder Stimulator Sacral Nerve Stimulator Right: Buttock Procedures Procedure Name Priority Date/Time Associated Diagnosis Comments BASIC METABOLIC PANEL, S/P STAT 08/27/2021 1:01 PM NURSING PROGRAM CHAIR HEMOGLOBIN A1C, B STAT 11/07/2018 1:4 5 PM NURSING PROGRAM CHAIR from Last 3 Months or Most Recently Relevant to Health Maintenance Results * (ABNORMAL) Basic Metabolic Panel (08/27/2021 1:01 PM NURSING PROGRAM CHAIR) Potassium, P 3.7 3.6 - 5.2 mmol/L 08/27/2021 1:24 PM NURSING PROGRAM CHAIR CNFL Sodium, P 132(L) 135 - 145 mmol/L 08/27/2021 1:24 PM NURSING PROGRAM CHAIR CNFL Chloride, P 97(L) 98 - 107 mmol/L 08/27/2021 1:24 PM NURSING PROGRAM CHAIR CNFL Bicarbonate, P 25 22 - 29 mmol/L 08/27/2021 1:24 PM NURSING PROGRAM CHAIR CNFL Anion Gap, P 10 7 - 15 08/27/2021 1:24 PM NURSING PROGRAM CHAIR CNFL BUN (Blood Urea Nitrogen), P 11 6 - 21 mg/dL 08/27/2021 1:24 PM NURSING PROGRAM CHAIR CNFL Creatinine 0.75 0.59 - 1.04 mg/dL 08/27/2021 1:24 PM NURSING PROGRAM CHAIR CNFL eGFR-Black/Afri can Burmese >90 >=60 mL/min/BSA 08/27/2021 1:24 PM NURSING PROGRAM CHAIR CNFL Comment: ----ADDITIONAL INFORMATION---- Estimated GFR calculated using the 2009 CKD_EPI creatinine equation. eGFR Non-Black/Afric an Burmese 86 >=60 mL/min/BSA 08/27/2021 1:24 PM NURSING PROGRAM CHAIR CNFL Comment: ----ADDITIONAL INFORMATION---- Estimated GFR calculated using the 2009 CKD_EPI creatinine equation. Calcium, Total, P 8.7(L) 8.8 - 10.2 mg/dL 08/27/2021 1:24 PM NURSING PROGRAM CHAIR CNFL Glucose, P 121 70 - 140 mg/dL 08/27/2021 1:24 PM NURSING PROGRAM CHAIR CNFL Blood (Blood, Venous) 08/27/2021 1:01 PM NURSING PROGRAM CHAIR 08/27/2021 1:04 PM NURSING PROGRAM CHAIR us Carolann Miranda APRN, C.N.P., D.N.P. LAB BLOOD ADD-ON Final Result Performing Organization Address City/[facility] Co de Phone Number [facility] [address] [place] [address], [facility] [place] [address] * (ABNORMAL) Hemoglobin A1c (11/07/2018 1:45 PM NURSING PROGRAM CHAIR) Hemoglobin A1c, B 6.2(H) 4.2 - 5.6 % 11/07/2018 2:26 PM NURSING PROGRAM CHAIR [facility] Comment: Hemoglobin A1c values of 5.7-6.4 percent indicate an increased risk for developing diabetes mellitus. In diabetic patients, HbA1c goals should be discussed with healthcare provider. Blood (Blood, Venous) 11/07/2018 1:45 PM NURSING PROGRAM CHAIR 11/07/2018 1:52 PM NURSING PROGRAM CHAIR us Darci Jenkins M.D. LAB BLOOD ADD-ON Final Res ult [facility] [id number] [address], [facility] [place] from Last 3 Months or Most Recently Relevant to Health Maintenance Insurance [facility] Care Teams Career Resource Specialist Relationship Specialty Start Date End Date Elsewhere, Pcp PCP - General Family Medicine 11/07/18
--- OUTSIDE RECORDS SUMMARY | 2025-04-18 13:45 | XMS_ITS | Data Portability ---
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 Plan of Treatment Reminders Order Date Submit Date Provider Last Modified By Organization Details Last Modified Time Details Appointments None recorded. Lab urinalysis, dipstick 2023 024 [facility], [address], [address], [place], [address], 4 09:53:35 urinalysis, microscopic 2023 024 [facility], [address], [address], [place], [address], 05:01:02 Referral None recorded. Procedures None recorded. Surgeries None recorded. Imaging None recorded. Medication Orders None recorded. Patient TargetsNo targets recorded. Patient Instructions Encounter Date Encounter Id Patient Instructions Last Modified By Organization Details Last Modified Time 01/31/2023 [id number] Test each progra m for at least 2 weeks, adjusting amplitude as needed. May remain on a program as long as it is effective. Return as needed for reprogramming. [email or web address] Not available 01/31/2023 09:26:48 04/02/2024 [id number] sp interstim revision stim is labial to see payton and myself/PA in 1 year -- will schedule ; to call sooner and be seen if ANY concerns/issues still itchy near the IPG site; no erythema no rash only on the site. hx of vaginal bleeding, Oct. was seen with her pmd --thought she passed a stone but cant say she had hematuria. will check ua for blood and get a pelvic us. she will let me know after she thinks about the event for fu for evaluation on hematuria vs vaginal bleeding as these are very different problems. [email or web address] Not available 04/01/2024 21:42:59 04/02/2024 [id number] Test each progra m for at least 2 weeks, adjusting amplitude as needed. May remain on a program as long as it is effective. Return as needed for reprogramming. [email or web address] Not available 04/02/2024 09:37:06 01/18/2025 [id number] Overactive bladder (OAB): -S/p InterStim revision 11/25/[address] Simmons. -Reviewed overactive bladder care pathway and gave handout: timed voiding, urge suppression strategies, pelvic floor exercises, and avoidance of bladder irritants, pelvic floor physical therapy and OAB medications. -Patient has tried: 2+ meds prior to interstim -Follow up in year, sooner if needed [email or web address] Not available 01/18/2025 11:15:07 01/18/2025 [id number] Test each progra m for at least 2 weeks, adjusting amplitude as needed. May remain on a program as long as it is effective. Return as needed for reprogramming. [email or web address] Not available 01/18/2025 11:49:46 Reason for Referral None Reported. Results Created Date Observation Date Name Description Value Unit Range Abnormal Flag Note LastModifiedBy Organization Detail LastModifiedTime 02/01/2001/31/2023 UA WITHO UT MICRO - CS URISC AN blood - uriscan NEGATI VE negati ve Not Available [facility] [address], [place], [address], 01/31/2023 09:57:03 02/01/20 23 01/31/2023 UA WITHO UT MICRO - CS URISC AN bilirubin - uriscan NEGATI VE mg/dL negati ve Not Available [facility] [address] [place] [address] [address], [place], [address], 01/31/2023 09:57:03 02/01/20 23 01/31/2023 UA WITHO UT MICRO - CS URISC AN urobilinogen - uriscan NORMAL mg/dL normal Not Available [facility] [address] [place] [address] [address], [place], [address], 01/31/2023 09:57:03 02/01/20 23 01/31/2023 UA WITHO UT MICRO - CS URISC AN ketones - uriscan NEGATI VE mg/dL negati ve Not Available [facility] [address] [place] [address] [address], [place], [address], 01/31/2023 09:57:03 02/01/20 23 01/31/2023 UA WITHO UT MICRO - CS URISC AN protein - uriscan NEGATI VE mg/dL negati ve Not Available [facility] [address] [place] [address] [address], [place], [address], 01/31/2023 09:57:03 02/01/20 23 01/31/2023 UA WITHO UT MICRO - CS URISC AN nitrites - uriscan NEGATI VE negati ve Not Available [facility] [address] [place] [address] [address], [place], [address], 01/31/2023 09:57:03 02/01/20 23 01/31/2023 UA WITHO UT MICRO - CS URISC AN glucose - uriscan NEGATI VE mg/dL negati ve Not Available [facility] [address] [place] [address] [address], [place], [address], 01/31/2023 09:57:03 02/01/20 23 01/31/2023 UA WITHO UT MICRO - CS URISC AN pH - uriscan 7.00 5.00-9 .00 Not Available [facility] [address] [place] [address] [address], [place], [address], 01/31/2023 09:57:03 02/01/20 23 01/31/2023 UA WITHO UT MICRO - CS URISC AN sp. gravity - uriscan 1.02 1.01-1 .03 Not Available [facility] [address] [facility] [address], [place], [address], 01/31/2023 09:57:03 02/01/20 23 01/31/2023 UA WITHO UT MICRO - CS URISC AN leukocytes - uriscan NEGATI VE negati ve Not Available [facility] [address] [facility] [address], [place], [address], 01/31/2023 09:57:03 02/01/20 23 01/31/2023 UA WITHO UT MICRO - CS URISC AN color - uriscan YELLOW Not Available [facility] [address] [facility] [address], [place], [address], 01/31/2023 09:57:03 02/01/20 23 01/31/2023 UA WITHO UT MICRO - CS URISC AN clarity - uriscan CLEAR Not Available [facility] [address] [facility] [address], [place], [address], 01/31/2023 09:57:03 02/01/20 23 01/31/2023 UA WITHO UT MICRO - CS URISC AN total urine volume (mL) 10 /mL ----- ----- ----- ----- ----- ----- ----- ----- ----- ----- ----- ----- ----- ----- ---- *Plevalentin caldera note the follo wing minim um quant ities for addit ional urine testi ng: - Atypi cals: 3 mL - Cytol ogy: 20 mL - GC/CH : 2 mL - FISH: 30 mL - Atypi cals w/ GC/CH : 5 mL - Cytol ogy PLUS FISH: 50 mL - Urine Cultu re: 3 mL ----- ----- ----- ----- ----- ----- ----- ----- ----- ----- ----- ----- ----- ----- ---- This lab resul t is being provi ded to you and your provi cortney at the same time in compl iance with the Centu ry Cures Act. Your provi cortney may not have had time to revie w and make recom menda tions based on the resul t. Hank schaeffer allow up to one week for provi cortney revie w. Not Available [facility] [address] [place] [address], [place], [address], 01/31/2023 09:57:03 04/02/20 24 04/02/2024 UA WITHO UT MICRO - CS URISC AN blood - uriscan NEGATI VE negati ve Not Available [facility] [address] [place] [address], [place], [address], 04/02/2024 09:53:35 04/02/20 24 04/02/2024 UA WITHO UT MICRO - CS URISC AN bilirubin - uriscan NEGATI VE mg/dL negati ve Not Available [facility] [address] [place] [address], [place], [address], 04/02/2024 09:53:35 04/02/20 24 04/02/2024 UA WITHO UT MICRO - CS URISC AN urobilinogen - uriscan NORMAL mg/dL normal Not Available [facility] [address] [place] [address] [address], [place], [address], 04/02/2024 09:53:35 04/02/20 24 04/02/2024 UA WITHO UT MICRO - CS URISC AN ketones - uriscan NEGATI VE mg/dL negati ve Not Available [facility] [address] [place] [address], [place], [address], 04/02/2024 09:53:35 04/02/20 24 04/02/2024 UA WITHO UT MICRO - CS URISC AN protein - uriscan NEGATI VE mg/dL negati ve Not Available [facility] [address] [facility] [address], [place], [address], 04/02/2024 09:53:35 04/02/20 24 04/02/2024 UA WITHO UT MICRO - CS URISC AN nitrites - uriscan NEGATI VE negati ve Not Available [facility] [address] [facility] [address], [place], [address], 04/02/2024 09:53:35 04/02/20 24 04/02/2024 UA WITHO UT MICRO - CS URISC AN glucose - uriscan NEGATI VE mg/dL negati ve Not Available [facility] [address] [facility] [address], [place], [address], 04/02/2024 09:53:35 04/02/20 24 04/02/2024 UA WITHO UT MICRO - CS URISC AN pH - uriscan 7.00 5.00-9 .00 Not Available [facility] [address] [place] [address] [address], [place], [address], 04/02/2024 09:53:35 04/02/20 24 04/02/2024 UA WITHO UT MICRO - CS URISC AN sp. gravity - uriscan <=1.01 1.01-1 .03 Not Available [facility] [place] [address] [facility] [address], [place], [address], 04/02/2024 09:53:35 04/02/20 24 04/02/2024 UA WITHO UT MICRO - CS URISC AN leukocytes - uriscan NEGATI VE negati ve Not Available [facility] [address] [place] [address] [address], [place], [address], 04/02/2024 09:53:35 04/02/20 24 04/02/2024 UA WITHO UT MICRO - CS URISC AN color - uriscan YELLOW lt. yellow ;yello w Not Available [facility] [address] [facility] [address], [place], [address], 04/02/2024 09:53:35 04/02/20 24 04/02/2024 UA WITHO UT MICRO - CS URISC AN clarity - uriscan CLEAR clear Not Available [facility] [address] [facility] [address], [place], [address], 04/02/2024 09:53:35 04/02/20 24 04/02/2024 UA WITHO UT MICRO - CS URISC AN total urine volume (mL) 40 /mL ----- ----- ----- ----- ----- ----- ----- ----- ----- ----- ----- ----- ----- ----- ---- *Allegra caldera note the follo wing minim um quant ities for addit ional urine testi ng: - Atypi cals: 3 mL - Cytol ogy: 20 mL - GC/CH : 2 mL - FISH: 30 mL - Atypi cals w/ GC/CH : 5 mL - Cytol ogy PLUS FISH: 50 mL - Urine Cultu re: 3 mL ----- ----- ----- ----- ----- ----- ----- ----- ----- ----- ----- ----- ----- ----- ---- This lab resul t is being provi ded to you and your provi cortney at the same time in compl iance with the Centu ry Cures Act. Your provi cortney may not have had time to revie w and make recom menda tions based on the resul t. Hank schaeffer allow up to one week for provi cortney revie w. Not Available [facility] [address], [place], [address], 04/02/2024 09:53:35 02/10/2002/09/2023 US, pelvi s, trans abdom inal + trans vagin al No observ ation record ed. [email or web address] [facility] [address], [place], [address], 02/10/2023 16:51:06 02/15/20 23 02/09/2023 US, pelvi s, compl ete No observ ation record ed. [email or web address] Not Available 02/14 13:47:07 Result Notes None recorded. 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 N39.46 : Mixed urinary incontine nce Not Available [facility] 0 23:41:50 Overactiv e urinary bladder 858355493 Active 2014 N32.81 : Bladder muscle dysfuncti on - overactiv e Not Available [facility] 0 23:41:50 Right upper quadrant pain 248681057 Active 2015 R10.11 : Right upper quadrant pain Not Available [facility] 0 23:41:50 Urge incontine nce of urine 06675115 Active 2017 N39.41 : Urge incontine nce of urine Not Available [facility] 0 23:41:50 Depressiv e disorder 55327188 Active 2023 JERMAIN Crawford - [facility] 4 09:17:01 Diabetes mellitus 00608972 Active 2023 JERMAIN Crawford - [facility] 4 09:17:25 Gastroeso phageal reflux disease 454558510 Active 2023 JERMAIN Crawford - [facility] 4 09:17:31 Hyperchol esterolem ia 88827285 Active 2023 Mary robin [facility] 4 09:17:39 History of statin therapy 563109577 Active 2023 Mary robin [facility] 4 09:17:47 Long-term current use of aspirin 39351129345 9103 Active 2024 Mary robin [facility] 5 10:37:28 Problem Notes None recorded. Procedures Surgical History Date Name Laterality Status Provider Name and Address Organization Details Recorded Time 01/19/20 25 COMPLEX VISIT completed Zhane Farias [facility] 01/17/2025 14:06:05 01/19/20 25 Sacral neuromodulation w/o reprogramming completed Payton Ferraro [facility] 01/18/2025 11:57:42 04/02/20 24 Bladder Scan completed Marcela Haji [facility] 04/02/2024 09:43:31 04/02/20 24 Sacral Stimulator Reprogramming completed Payton Ferraro [facility] 04/02/2024 10:16:02 02/01/20 23 Sacral neuromodulation w/o reprogramming completed Payton Ferraro [facility] 01/31/2023 09:36:45 01/12/20 22 Sacral neuromodulation w/o reprogramming completed Payton Ferraro [facility] 01/11/2022 15:17:00 12/05/19 22 Sacral neuromodulation w/o reprogramming completed Payton Ferraro [facility] 12/04/2021 17:35:16 11/02/19 22 Past Data Reviewed completed Jillian Simmons MD [address] [place] [address], [address], [facility] 10/30/2021 08:40:20 11/02/19 22 In and Out Catheterization- female completed Jillian Simmons MD [address] [place] [address],[facility] [address], [place], [address], [facility] 11/02/2021 09:17:57 10/14/19 22 Sacral Stimulator Reprogramming completed Payton Ferraro [facility] 10/14/2021 13:36:41 12/04/19 21 Diagnostic colonoscopy completed Not Available [facility] 04/13/2022 14:01:45 07/20/20 19 Us urine capacity measure completed Not Available [facility] 04/13/2022 14:01:45 01/14/20 17 Us urine capacity measure completed Not Available [facility] Note 04/13/2022 14:01:45 01/06/20 16 Us urine capacity measure completed Not Available [facility] Note 04/13/2022 14:01:45 07/15/20 15 Insert bladder catheter completed Not Available [facility] Note 04/13/2022 14:01:45 01/17/20 15 Insert bladder catheter completed Not Available Health Note 04/13/2022 14:01:45 12/14/19 15 Us urine capacity measure completed Not Available [facility] Note 04/13/2022 14:01:45 12/07/19 15 Repair bladder defect completed Not Available [facility] Note 04/13/2022 14:01:45 10/25/19 15 Insert bladder catheter completed Not Available [facility] Note 04/13/2022 14:01:45 08/01/20 14 Opn impltj francisco sacral nerve completed Not Available [facility] Note 04/13/2022 14:01:45 05/17/20 14 Implant neuroelectrodes completed Not Available [facility] Note 04/13/2022 14:01:45 08/16/20 13 Us urine capacity measure completed Not Available Health Note 04/13/2022 14:01:45 07/05/20 13 Us urine capacity measure completed Not Available Health Note 04/13/2022 14:01:45 11/09/19 13 Us urine capacity measure completed Not Available [facility] Note 04/13/2022 14:01:45 03/24/20 12 Electro-uroflowmet ry first completed Not Available Health Note 04/13/2022 14:01:45 03/24/20 12 Intraabdominal pressure test completed Not Available [facility] Note 04/13/2022 14:01:45 03/24/20 12 Cystometrogram w/vp clinical research&up completed Not Available Health Note 04/13/2022 14:01:45 03/24/20 12 Anal/urinary muscle study completed Not Available Health Note 04/13/2022 14:01:45 03/08/20 12 Insert bladder catheter completed Not Available Health Note 04/13/2022 14:01:45 11/25/19 11 Colonoscopy thru stoma spx completed Not Available [facility] Note 04/13/2022 14:01:46 03/08/20 06 Anterior colporrhaphy completed Not Available [facility] Note 04/13/2022 14:01:46 01/18/[address] colonography screening completed Not Available [facility] Note 01/27/2023 22:21:58 Imaging Results None recorded. Procedure Notes None recorded. Medical Equipment None Reported. Allergies Allergen ID Allergen Name Allergen Category Reaction Reaction Severity Criticality Documentation Date Start Date Code Code System Note Provider Name and Address Organization Details Recorded Time 064095 Diflucan medicatio n Not available Not available Not available 03/05/2020 3 RxNorm Not Available [facility] 0 23:37:04 811348 Flagyl medicatio n Not available Not available Not available 03/05/2020 6 RxNorm Not Available [facility] 0 23:37:04 287869 fluconazo le medicatio n itching Not available Not available 01/18/20252018 4450 RxNorm Mary robin [facility] 5 10:36:58 667388 metronida zole medicatio n itching Not available Not available 01/18/20252018 6922 RxNorm Mary robin [facility] 5 10:36:54 197200 Product containin g nitroimid azole (product) medicatio n rash Not available Not available 01/18/20252005 40295 7004 SNOMED Mary robin [facility] 5 10:36:50 Medications Name Sig Start Date Stop Date Status Note LastModified by Organization Details LastModified Time fluoxetin e 40 mg capsule TAKE ONE CAPSULE BY MOUTH EVERY DAY IN THE MORNING. * active Not Available Not Available No t Available latanopro st 0.005 % eye drops INSTILL ONE DROP INTO RIGHT EYE AT BEDTIME* active Not Available Not Available No t Available atorvasta tin 20 mg tablet TAKE ONE TABLET BY MOUTH ONE TIME DAILY* active Not Available Not Available No t Available permethri n 5 % topical cream Apply to entire body from the neck down and leave on for 8 hours. Then rinse and repeat this in one week. 04/02 completed HN: Patient reports no longer taking Not Available Not Available Not Available ciproflox acin 500 mg tablet TAKE ONE TABLET BY MOUTH EVERY TWELVE HOURS 01/31 completed HN: Patient reports no longer taking Not Available Not Available Not Available omeprazol e 40 mg capsule,d elayed release TAKE ONE CAPSULE BY MOUTH ONE TIME DAILY* active Not Available Not Available No t Available aspirin 81 mg tablet,de layed release Take 1 tablet every day by oral route. 04/02 completed HN: Patient reports taking HN: Patient reports no longer taking Not Available Not Available Not Available triamcino lone acetonide 0.1 % topical cream Apply topicall y to affected area(s) 3 times daily. 01/11 completed HN: Patient reports no longer taking Not Available Not Available Not Available cephalexi n 500 mg capsule Take 1 Capsule (500 mg) by mouth two times daily for 7 days. 04/02 completed HN: Patient reports no longer taking Not Available Not Available Not Available hydrocort isone 2.5 % topical cream APPLY A THIN LAYER TO THE AFFECTED AREA(S) BY TOPICAL ROUTE 2 TIMES PER DAY 04/14 completed HN: Patient reports no longer taking Not Available Not Available Not Available fluoxetin e 20 mg capsule 20mg 1/day active Not Available Not Available No t Available fluticaso ne propionat e 50 mcg/actua tion nasal spray,adolfo pension Inhale 2 Sprays to both nostrils once daily. 01/11 completed HN: Patient reports no longer taking Not Available Not Available Not Available bupropion HCl XL 150 mg 24 hr tablet, extended release TAKE ONE TABLET BY MOUTH ONE TIME DAILY* active Not Available Not Available No t Available nitrofura ntoin monohydra te/macroc rystals 100 mg capsule TAKE ONE CAPSULE BY MOUTH TWICE DAILY for 5 days 01/31 completed HN: Patient reports no longer taking Not Available Not Available Not Available aspirin 81mg 1/day active Not Available Not Available No t Available omeprazol e 04/14 completed HN: Patient reports taking HN: Patient reports no longer taking Not Available Not Available Not Available Vitamin D3 5000iu 1/day 04/02 completed HN: Patient reports no longer taking Not Available Not Available Not Available Zyrtec 24 hour 1/day active Not Available Not Available No t Available Pseudofed 04/02 completed Not Available Not Available Not Available multivita min 01/11 completed HN: Patient reports taking HN: Patient reports no longer taking Not Available Not Available Not Available bupropion HBr 04/14 completed HN: Patient reports taking HN: Patient reports no longer taking Not Available Not Available Not Available Contour Next Test Strips USE TO TEST ONCE A DAY active Not Available Not Available No t Available triamcino lone 0.1 % topical ointment and dimethico ne 5 % topical cream 01/11 completed HN: Patient reports taking HN: Patient reports no longer taking Not Available Not Available Not Available Vitals Date Recorded Body height Body mass index (BMI) Body weight Provider Name and Address Organization Details Last Updated DateTime 01/18/2025 162.56 cm 28.8 kg/m2 36818.52 g Payton Ferraro [facility] 01/18/2025 10:24:32 Date Recorded Body height Body mass index (BMI) Body weight Provider Name and Address Organization Details Last Updated DateTime 01/18/2025 162.56 cm 28.8 kg/m2 19670.52 g Mary Roman [facility] 01/18/2025 10:36:39 Date Recorded Body weight Provider Name an d Address Organization Details Last Updated DateTime 01/31/2023 09802.33 g Anita Sawyer [facility] 01/31/2023 09:29:44 Date Recorded Body height Body mass index (BMI) Body weight Provider Name and Address Organization Details Last Updated DateTime 01/31/2023 162.56 cm 28.8 kg/m2 80035.52 elvis Payton Ferraro [facility] 01/31/2023 09:14:52 Date Recorded Body mass index (BMI) Body height Provider Name and Address Organization Details Last Updated DateTime 01/31/2023 28.5 kg/m2 162.56 cm Not Available Health Note 09:28:34 Date Recorded Body height Body mass index (BMI) Body weight Provider Name and Address Organization Details Last Updated DateTime 04/02/2024 162.56 cm 28.8 kg/m2 91053.52 g Payton Ferraro [facility] 04/02/2024 09:30:50 Date Recorded Body height Body mass index (BMI) Body weight Provider Name and Address Organization Details Last Updated DateTime 04/02/2024 162.56 cm 28.8 kg/m2 48925.52 g Mary Roman [facility] 04/02/2024 09:15:46 Social History Question Answer Notes LastModified by Organizat ion Details LastModified Time Tobacco Smoking Status Former Smoker Not Available Health Note 03/30/2024 09:49:19 Do You Have An Advance Directive? No [email or web address] Information not available 01/18/2025 What Is Your Level Of Caffeine Consumption? Heavy 3-4 Large Mugs Coffee Daily, Soda Occasionally [email or web address] Information not available 04/02/2024 How Much Tobacco Do You Chew? None [email or web address] Information not available 03/30/2024 When Did You Quit Smoking? 16+yearssin celastcigar ette [email or web address] Information not available 04/02/2024 Race White [email or web address] Information n ot available 03/06/2020 Ethnicity Not /La licha [email or web address] Information not available 01/11/2022 Preferred Language Angolan [email or web address] Information not available 01/11/2022 Number Of Pregnancies 5 [email or web address] Information not available 01/27/2023 Number Of Vaginal Deliveries 3 [email or web address] Information not available 01/27/2023 Number Of Caesarean Sections 0 [email or web address] Information not available 01/27/2023 Recreational Drug Use No [email or web address] Information not available 01/11/2022 Could You Be ? No [email or web address] Information not available 01/11/2022 Marital Status [email or web address] Informatio n not available 10/29/2021 Do You Have A Medical Power Of Mechanical Specialist? No [email or web address] Information not available 01/18/2025 What Was The Date Of Your Most Recent Tobacco Screening? 01/18/2025 [email or web address] Information not available 01/18/2025 What Is Your Relationship Status? [email or web address] Information not available 03/30/2024 Are You Sexually Active? No [email or web address] Information not available 03/30/2024 Has Tobacco Cessation Counseling Been Provided? No [email or web address] Information not available 04/14/2022 How Many Years Have You Smoked Tobacco? 10 [email or web address] Information not available 03/30/2024 How Many Days In The Past Year Have You Consumed 4 Or More Drinks? 0 [email or web address] Information not available 03/30/2024 Sex: Female Functional Status Question Answer Note LastModified by Organizat ion Details LastModified Time Do you use any illicit or recreational drugs? No [email or web address] Information not available 03/30/2024 Do you or have you ever used any other forms of tobacco or nicotine? No [email or web address] Information not available 11/02/2021 What is your level of alcohol consumption? None [email or web address] Information not available 04/02/2024 Do you or have you ever used smokeless tobacco? Never used smokeless tobacco [email or web address] Information not available 03/30/2024 Are you currently employed? No [email or web address] Information not available 01/18/2025 Do you or have you ever used e-cigarettes or vape? Never used electronic cigarettes [email or web address] Information not available 03/30/2024 Mental Status None recorded. Family History Nothing Reported Notes:Hypertension:Mother Psychriatric problems:Mother Psychriatric problems:Father Hypertension:Father Arthritis:Mother Arthritis:Father Strokes:Brother Cancer-reoriductive system :Father Asthma:Son Diabetes:Grandmother Medical History Condition Response Diabetes Y Sexually Transmitted Infection N Other N Bleeding Disorder N High Blood Pressure N Kidney Stones N High Cholesterol Y GERD/Acid Reflux Y Heart Disease N Cancer N Lung Disease N Depression Y Gynecological HistoryNo gynecological history recorded. Obstetrics History GPAL:G 0 P 0 0 0 0 Immunizations Vaccine Type Date Status Note Provider Nam e and Address Organization Details Recorded Time SARS-COV-2 (COVID-19) vaccine, UNSPECIFIED 3 completed Not Available Health Note 03/30/2024 09:49:22 influenza, unspecified formulation 3 completed Not Available Health Note 03/30/2024 09:49:22 zoster live 1 completed Not Available Health Note 03/30/2024 09:49:22 pneumococcal, unspecified formulation 3 completed Not Available Health Note 03/30/2024 09:49:22 SARS-COV-2 (COVID-19) vaccine, UNSPECIFIED 1 completed Not Available Health Note 10/29/2021 19:19:41 influenza, unspecified formulation 1 completed Not Available Health Note 10/29/2021 19:19:41 pneumococcal, unspecified formulation 1 completed Not Available Health Note 10/29/2021 19:19:41 Influenza, split virus, trivalent, PF 9 completed Not Available [facility] 01/18/2025 10:11:36 Influenza, split virus, trivalent, preservative 0 completed Not [facility] 01/18/2025 10:11:36 Influenza, split virus, trivalent, preservative 1 completed Not Available [facility] 01/18/2025 10:11:36 Influenza, split virus, trivalent, preservative 2 completed Not Available [facility] 01/18/2025 10:11:36 Influenza, split virus, trivalent, preservative 3 completed Not Available [facility] 01/18/2025 10:11:36 Influenza, split virus, trivalent, preservative 3 completed Not Available [facility] 01/18/2025 10:11:36 Influenza, split virus, quadrivalent, PF 4 completed Not Available [facility] 01/18/2025 10:11:36 zoster live 5 completed Not Available [facility] 01/18/2025 10:11:36 Influenza, split virus, quadrivalent, PF 5 completed Not Available [facility] 01/18/2025 10:11:36 influenza, unspecified formulation 6 completed Not Available [facility] 01/18/2025 10:11:36 Influenza, split virus, quadrivalent, preservative 7 completed Not Available [facility] 01/18/2025 10:11:36 Influenza, split virus, quadrivalent, PF 8 completed Not Available [facility] 01/18/2025 10:11:36 Influenza, split virus, quadrivalent, preservative 9 completed Not Available [facility] 01/18/2025 10:11:36 Tdap 0 completed Not Available [facility] 01/18/2025 10:11:36 Influenza, recombinant, quadrivalent, PF 0 completed Not Available [facility] 01/18/2025 10:11:36 Influenza, split virus, quadrivalent, preservative 0 completed Not Available [facility] 01/18/2025 10:11:36 COVID-19, mRNA, LNP-S, PF, 100 mcg/0.5mL dose or 50 mcg/0.25mL dose 1 completed Not Available [facility] 01/18/2025 10:11:36 COVID-19, mRNA, LNP-S, PF, 100 mcg/0.5mL dose or 50 mcg/0.25mL dose 1 completed Not Available [facility] 01/18/2025 10:11:36 pneumococcal polysaccharide PPV23 1 completed Not Available [facility] 01/18/2025 10:11:36 Influenza, recombinant, quadrivalent, PF 1 completed Not Available [facility] 01/18/2025 10:11:36 COVID-19, mRNA, LNP-S, bivalent, PF, 50 mcg/0.5 mL or 25mcg/0.25 mL dose 2 completed Not Available [facility] 01/18/2025 10:11:36 Influenza, recombinant, quadrivalent, PF 2 completed Not Available [facility] 01/18/2025 10:11:36 COVID-19, mRNA, LNP-S, PF, 50 mcg/0.5 mL 3 completed Not Available [facility] 01/18/2025 10:11:36 Influenza, split virus, quadrivalent, PF 3 completed Not Available [facility] 01/18/2025 10:11:36 COVID-19, mRNA, LNP-S, PF, 50 mcg/0.5 mL 5 completed Not Available [facility] 01/18/2025 10:11:36 Influenza, adjuvanted, trivalent, PF 5 completed Not Available [facility] 01/18/2025 10:11:36 SARS-COV-2 (COVID-19) vaccine, UNSPECIFIED 1 completed Not Available Health Note 01/10/2022 19:50:46 influenza, unspecified formulation 1 completed Not Available Health Note 01/10/2022 19:50:46 pneumococcal polysaccharide PPV23 1 completed Not Available Health Note 01/10/2022 19:50:46 pneumococcal, unspecified formulation 1 completed Not Available Health Note 04/13/2022 14:01:51 SARS-COV-2 (COVID-19) vaccine, UNSPECIFIED 2 completed Not Available Health Note 04/13/2022 14:01:51 influenza, unspecified formulation 1 completed Not Available Health Note 04/13/2022 14:01:51 influenza, unspecified formulation 2 completed Not Available Health Note 01/27/2023 22:22:04 SARS-COV-2 (COVID-19) vaccine, UNSPECIFIED 2 completed Not Available Health Note 01/27/2023 22:22:04 pneumococcal polysaccharide PPV23 2 completed Not Available Health Note 01/27/2023 22:22:04 zoster recombinant 0 completed Bijal Stevens null, [facility] 08/12/2023 15:00:23 zoster recombinant 0 completed Bijal Stevens null, [facility] 08/12/2023 15:00:29 Tdap 1 completed Bijal Stevens null, [facility] 08/12/2023 15:00:50 Tdap 0 completed Bijal Stevens null, [facility] 08/12/2023 15:01:01 Hep B, unspecified formulation 4 completed Bijal Stevens null, [facility] 08/12/2023 15:01:51 Hep B, unspecified formulation 3 completed Bijal Stevens null, [facility] 08/12/2023 15:02:00 Hep B, unspecified formulation 3 completed Bijal Stevens null, [facility] 08/12/2023 15:02:07 Past Encounters Encounter ID Performer Location Encounter Start Date Encounter Closed Date Diagnosis/Indication Diagnosis SNOMED-CT Code Diagnosis ICD10 Code Diagnosis Note [id number] [facility] [address] [place] [address],[facility] e [address] [place] [address] [phone] 0 10/14/2021 11:11:37 10/14/2021 14:44:51 Overactive urinary bladder 227636714 N32.81 [id number] MD Trish Kemp_Woo [address] e [address] [place] [address] [phone] 0 11/02/2021 08:55:17 11/02/2021 09:34:13 Mixed urinary incontinence 209121227 N39.46 improved stable Overactive urinary bladder 895380371 N32.81 improved stable Atrophic vaginitis 70770 000 N95.2 chronic worse [id number] MD Yehuda Kemp [address] [place], [place] [address]it e [address] [place] [address] [phone] 0 12/04/2021 15:58:06 12/07/2021 10:57:20 Overactive urinary bladder 144431439 N32.81 improved stable [id number] MD Yehuda Kemp [address] [place], [place] [address]it e [address] [place] [address] [phone] 0 12/07/2021 12:23:16 12/07/2021 14:33:44 Overactive urinary bladder 913833320 N32.81 improved stable Postoperat binta wound infection 96440190 T81.40XA [facility] [id number] MD Yehuda Kemp [address] [place], [place] [address]it e [address] [place] [address] [phone] 0 01/11/2022 15:09:03 01/11/2022 16:18:21 Overactive urinary bladder 860299197 N32.81 improved stable Urge incon tinence of urine 39726806 N39.41 improved stable [id number] MD Trish KempAryan [address] [phone] 0 01/11/2022 14:22:35 01/11/2022 15:37:45 Overactive urinary bladder 948419562 N32.81 improved stable [id number] ROSALBA [facility]ARRUFO [facility] [employer] [place] [address] [phone] 0 04/14/2022 09:53:07 04/14/2022 14:12:13 Increased frequency of urination 605593794 R35.0 acute, worse [id number] MD [facility]asw[facility] Systems[address] [address] 01/31/2023 09:28:28 01/31/2023 09:49:59 Overactive urinary bladder 722418771 N32.81 improved stable Urge incon tinence of urine 40079170 N39.41 improved stable Postmenopa usal bleeding 92879981 N95.0 new [id number] MD Trish KempAryan [address] [phone] 0 01/31/2023 08:53:01 01/31/2023 09:37:23 Overactive urinary bladder 760505111 N32.81 improved stable [id number] MD Trish KempAryan jarret [address] [place] [address] [phone] 0 04/02/2024 09:12:35 04/02/2024 16:26:19 Overactive urinary bladder 915476349 N32.81 improved stable Urge incon tinence of urine 17672600 N39.41 improved stable [id number] MD Yehuda Kemp [address] [place] [address] [phone] 0 04/02/2024 09:08:16 04/03/2024 10:12:33 Overactive urinary bladder 191316293 N32.81 improved stable [id number] ROSALBA Lisa [employer] [address],[facility] e [address] [place] [address] [phone] 0 01/18/2025 10:10:34 01/21/2025 13:46:23 Overactive urinary bladder 179374283 N32.81 improved stable Urge incon tinence of urine 55692069 N39.41 improved stable [id number] Jillian Simmons MD [facility] [address],[facility] e [address] [place] [address] [phone] 0 01/18/2025 10:07:22 01/24/2025 17:52:22 Overactive urinary bladder 854329399 N32.81 improved stable Health Concerns Section Related Observation LastModified by Organization Detai ls LastModified Time None Recorded Concern Status LastModified by Organization Details LastModified Time None Recorded Advance Directives Directive N: Payers Insurance Date Sequence Insurance Name Policy Number Policy Louie Covered Member ID Louie Member ID Guarantor Name 01/24/2025 1 [facility]: (MEDICARE REPLAC[place] PPO) [id number] Simi Morgan'Ol son [id number] Simi Kevin 01/15/2025 1 [facility] [id number] Simi Morgan [id number] Simi Kevin Notes Date Note Type Note Provider Name and Address Organization Details Recorded Time 01/31/2023 text/html Overactive BladderReported by Patient Frequent Urination Urine leakage related to the feeling of Urgency Urine leakage related to physical activity Small amount of urine leakage (drops) Difficulty emptying your bladder Pain or discomfort in the lower abdominal or genital area Current program: 1, 2, 3, 4, 5, 6, 7 , A, B, C Current amplitude: ____ PVR: ____ cc. Patient complaints: Is the interstim turned on? Y/N Is the stimulus uncomfortable? Y/N Does the patient have UTI? Y/N Any changes to diet? Y/N Has the patient been constipated? Y/N Any chnages in meds? Y/N Any changes in other medical conditions? Y/N Recent fall, surgery, or procedures? Y/N Impedance checked Batery checked Amplitude limit changed Amp chnaged Program changed Pulse width changed Rate chaanged Resolution changed Payton Ferraro [facility] 01/31/2023 09:36:59 01/31/2023 text/html ROS as noted in the HPI s/p interstim revision 11/25/21not on meds for her bladder either Overactive Bladder Pathway Questionnaire:Uses the restroom:5times per day Uses the restroom (nighttime): [id number] Accidents:.25per day Pads: using.5per day Symptoms since last appointment:99% BetterHappy with current treatment plan:yes Urogenital Distress Inventory (RASHAD-6):[0]Frequent urination:Not at All[1] Urine leakage related to the feeling of urgency:Slightly[1] Urine leakage related to physical activity, coughing or sneezing:Slightly[0] Small amounts of urine leakage (drops):Not at All[0] Difficulty emptying your bladder:Not at All[0] Pain or discomfort in the lower abdominal or genital area:Not at All Incontinence Impact Questionnaire (IIQ-7):[0] Ability to do laborer heading (cooking, housecleaning):Not at All[0] Physical recreation such as walking, or other exercise:Not at All[0] Ability to attend entertainment activities (movie, concerts):Not at All[0] Ability to travel by car more than 30 minutes from home:Not at All[0] Participation in social activities outside your home:Not at All[1] Emotional health (nervousness, depression, etc):Slightly[1] [place] frustrated:Slightly Continence Function Questionnaire:[2] Urinary control:Occasional dribbling[2] Leaked urine:About once a week or less often 01-31-23sp interstim reivison 2021 with carina today with payton for programmingnot on meds Overactive Bladder Pathway Questionnaire: Uses the restroom:7times per day Uses the restroom (daytime): [id number] Uses the restroom (nighttime): [id number] Accidents:0per day Pads: [id number] day Symptoms since last appointment:85%Better Happy with current treatment plan:yes Urogenital Distress Inventory (RASHAD-6): [1] Frequent urination:Slightly [1] Urine leakage related to the feeling of urgency:Slightly [1] Urine leakage related to physical activity, coughing or sneezing:Slightly [1] Small amounts of urine leakage (drops):Slightly [0] Difficulty emptying your bladder:Not at All [0] Pain or discomfort in the lower abdominal or genital area:Not at All Incontinence Impact Questionnaire (IIQ-7): [0] Ability to do laborer heading (cooking, housecleaning):Not at All [0] Physical recreation such as walking, or other exercise:Not at All [0] Ability to attend entertainment activities (movie, concerts):Not at All [0] Ability to travel by car more than 30 minutes from home:Not at All [0] Participation in social activities outside your home:Not at All [0] Emotional health (nervousness, depression, etc):Not at All [0] [place] frustrated:Not at All Continence Function Questionnaire: [2] Urinary control:Occasional dribbling [2] Leaked urine:About once a week or less often [2] How big of a problem urinary function has been:Very small problem Jillian Simmons MD [address] [place] [address],[address], [phone], [facility] 01/31/2023 09:47:06 04/02/2024 text/html Overactive BladderReported by Patient Current program: 1, 2, 3, 4, 5, 6, 7 , A, B, C Current amplitude: ____ PVR: ____ cc. Patient complaints: Is the interstim turned on? Y/N Is the stimulus uncomfortable? Y/N Does the patient have UTI? Y/N Any changes to diet? Y/N Has the patient been constipated? Y/N Any chnages in meds? Y/N Any changes in other medical conditions? Y/N Recent fall, surgery, or procedures? Y/N Impedance checked Batery checked Amplitude limit changed Amp chnaged Program changed Pulse width changed Rate chaanged Resolution changed Frequent Urination Urine leakage related to the feeling of Urgency Urine leakage related to physical activity Small amount of urine leakage (drops) Difficulty emptying your bladder Pain or discomfort in the lower abdominal or genital area Payton Ferraro [facility] 04/02/2024 10:16:14 04/02/2024 text/html ROS as noted in the HPI s/p interstim revision 11/25/21not on meds for her bladder either Overactive Bladder Pathway Questionnaire:Uses the restroom:5times per day Uses the restroom (nighttime): [id number] Accidents:.25per day Pads: using.5per day Symptoms since last appointment:99% BetterHappy with current treatment plan:yes Urogenital Distress Inventory (RASHAD-6):[0]Frequent urination:Not at All[1] Urine leakage related to the feeling of urgency:Slightly[1] Urine leakage related to physical activity, coughing or sneezing:Slightly[0] Small amounts of urine leakage (drops):Not at All[0] Difficulty emptying your bladder:Not at All[0] Pain or discomfort in the lower abdominal or genital area:Not at All Incontinence Impact Questionnaire (IIQ-7):[0] Ability to do laborer heading (cooking, housecleaning):Not at All[0] Physical recreation such as walking, or other exercise:Not at All[0] Ability to attend entertainment activities (movie, concerts):Not at All[0] Ability to travel by car more than 30 minutes from home:Not at All[0] Participation in social activities outside your home:Not at All[1] Emotional health (nervousness, depression, etc):Slightly[1] [place] frustrated:Slightly Continence Function Questionnaire:[2] Urinary control:Occasional dribbling[2] Leaked urine:About once a week or less often 5- 8-23sp interstim revison 2021 with meseen today with payton for programmingnot on meds Overactive Bladder Pathway Questionnaire:Uses the restroom:7times per day Uses the restroom (daytime): [id number] Uses the restroom (nighttime): [id number] Accidents:0per day Pads: [id number] day Symptoms since last appointment:85% BetterHappy with current treatment plan:yes Urogenital Distress Inventory (RASHAD-6):[1] Frequent urination:Slightly[1] Urine leakage related to the feeling of urgency:Slightly[1] Urine leakage related to physical activity, coughing or sneezing:Slightly[1] Small amounts of urine leakage (drops):Slightly[0] Difficulty emptying your bladder:Not at All[0] Pain or discomfort in the lower abdominal or genital area:Not at All Incontinence Impact Questionnaire (IIQ-7):[0] Ability to do laborer heading (cooking, housecleaning):Not at All[0] Physical recreation such as walking, or other exercise:Not at All[0] Ability to attend entertainment activities (movie, concerts):Not at All[0] Ability to travel by car more than 30 minutes from home:Not at All[0] Participation in social activities outside your home:Not at All[0] Emotional health (nervousness, depression, etc):Not at All[0] [place] frustrated:Not at All Continence Function Questionnaire:[2] Urinary control:Occasional dribbling[2] Leaked urine:About once a week or less often[2] How big of a problem urinary function has been:Very small problem 7-8-24 sx are pretty good. not really had much issues (she is better close to 99%) better with this treatmentat times just a post void drip -- 1/3 of the timeno utis/hematuria Jillian Simmons MD [address] [facility],[address], [place], [address], [facility] 04/02/2024 10:16:33 01/18/2025 text/html Current program: 1, 2, 3, 4, 5, 6, 7 , A, B, C Current amplitude: ____ PVR: ____ cc. Patient complaints: Is the interstim turned on? Y/N Is the stimulus uncomfortable? Y/N Does the patient have UTI? Y/N Any changes to diet? Y/N Has the patient been constipated? Y/N Any chnages in meds? Y/N Any changes in other medical conditions? Y/N Recent fall, surgery, or procedures? Y/N Impedance checked Batery checked Amplitude limit changed Amp chnaged Program changed Pulse width changed Rate chaanged Resolution changed Payton robin [facility] 01/18/2025 11:57:57 01/18/2025 text/html 01/18/25:Patient presents to follow up for OABShe was last seen on 04/02/24. Happy with current treatment plan.S/p InterStim revision 11/25/[address] Simmons. Saw Payton this AM. Did not change anything Current medication(s): noneShe wakes up 1 times a night. She voids 6 times a day. She uses 1 pads per day.Bowels: no issues, looser stools and going to meet with her pcp soon.Fluid intake: 100 oz water/day, 24-30 oz coffee. RASHAD-6):5, (IIQ-7):3, Continence Function Questionnaire:7 Zhane robin [facility] 01/18/2025 11:15:22 OBGyn Episode No OBEpisode recorded.
--- NOTE | 2025-04-18 14:07 | CRLHL7_ITS ---
For Patients: As a result of the Cures Act, medical imaging exams and procedure reports are released immediately into your electronic medical record. You may view this report before your referring provider. If you have questions, please contact your health care provider. INDICATION: : Chest pain COMPARISON: Chest radiograph on June 18, 2017 TECHNIQUE: Two view(s) of the chest FINDINGS: The cardiomediastinal silhouette and pulmonary vasculature are unremarkable. There is no focal airspace consolidation, pleural effusion, or pneumothorax. No displaced fractures. IMPRESSION: No acute cardiopulmonary process. Dictated by Kb Ruano MD @ 04/18/2025 2:59:32 PM (Electronically Signed)
--- NOTE | 2025-04-18 14:08 | ED.CHESTPAIN ---
HPI - Chest Pain General Date Seen: 04/18/25 Chief Complaint: Chest Pain Stated Complaint: Chest pain and tightness Time Seen by Provider: 04/18/25 13:44 Source: patient Mode of arrival: ambulatory Limitations: no limitations History of Present Illness HPI narrative: Patient is a 64-year-old female presenting to the emergency department for chest pain. She states more on for 30 she noticed a cramping sensation in her left lower mid axillary ribs. This lasted about 2nd or 2. She had a couple more episodes at home but again the only lasted a 2nd or 2 at the most. Has never had symptoms like that before and was going about her day. Had another episode so she decided to come in and while she was on the way here she had left chest pain that felt like a pressure/squeezing sensation that again only lasted for a second or 2. No further chest pain. Denies any symptoms at this time. Does have a slight ache in her lateral ribs were the cramping was this morning. No history of blood clots. No recent travel. Does have family history of heart disease with her father having heart attack when he was 49. She has no known heart disease. No known lung disease. Does have diet-controlled diabetes along with dyslipidemia. No other concerns noted at this time. States she currently feels asymptomatic. States she has had no sick contacts recently but does states she had some diarrhea this past Tuesday and Tuesday that has since resolved. Denies any abdominal pain. Denies headache, vision changes, weakness, numbness, fevers, chills, dysuria. Related Data Home Medications ?Medication ?Instructions ?Recorded ?Confirmed atorvastatin 20 mg tablet 20 mg PO DAILY 02/19/23 04/18/25 bupropion HCl 150 mg 24 hr tablet, 150 mg PO DAILY 02/19/23 04/18/25 extended release fluoxetine 40 mg capsule 40 mg PO QAM 02/19/23 04/18/25 omeprazole 40 mg capsule,delayed 40 mg PO DAILY 02/19/23 04/18/25 release cetirizine 10 mg capsule (Zyrtec) 10 mg PO QDAY PRN 05/03/24 04/18/25 latanoprost 0.005 % eye drops 1 drp ophthalmic (eye) 05/03/24 10/03/24 aspirin 81 mg tablet,delayed 81 mg PO QDAY 10/03/24 04/18/25 release (Adult Aspirin Regimen) FeSO4 PO DAILY 04/18/25 Allergies Allergy/AdvReac Type Severity Reaction Status Date / Time metronidazole (From Flagyl) Allergy Mild Hives Itchy Verified 04/18/25 13:55 adhesive tape Allergy Unknown Verified 04/18/25 13:55 fluconazole (From Diflucan) Allergy Verified 04/18/25 13:55 Review of Systems Status of ROS Reports: 10 or more systems reviewed and unremarkable except as noted in History and below PFSH PFS Medical History Alcoholism ?F10.20 - Alcohol dependence, uncomplicated (ICD-10) History of abnormal cervical Pap smear ?Z87.42 - Personal history of other diseases of the female genital tract (ICD-10) Surgical History History of wisdom tooth extraction (1981) ?K08.409 - Partial loss of teeth, unspecified cause, unspecified class (ICD-10) History of endometrial ablation (2005) ?Z98.890 - Other specified postprocedural states (ICD-10) History of bladder suspension procedure (2005) ?Z98.890 - Other specified postprocedural states (ICD-10) ?Z87.448 - Personal history of other diseases of urinary system (ICD-10) Family History Son Asthma Paternal Grandmother Diabetes Father Coronary artery disease, Onset Age: 48 Lung cancer High blood pressure Alcohol dependence Mother High cholesterol High blood pressure Macular degeneration Alzheimers disease Maternal Grandmother Macular degeneration Brother Stroke, Onset Age: 36 Social History Smoking Status: Former smoker Do you use any of these nicotine containing products: None Second hand tobacco smoke exposure: No How often do you have a drink containing alcohol: never How often do you have six or more drinks on one occasion: Never AUDIT-C Alcohol total score: 0 Non-prescribed substance use: denies use service: No Exam Narrative Exam Narrative: Const: Well-nourished, Well-developed, in mild distress Eyes: PERRL, no conjunctival injection, and symmetrical lids HENT: Atraumatic external nose and ears. Moist mucous membranes. Neck: Symmetric, trachea midline, No thyromegaly. CVS: RRR, No murmurs or gallops. Peripheral pulses 2+ and equal in all extremities RESP: Unlabored respiratory effort. Clear to auscultation bilaterally. GI: Nontender/Nondistended, No rebound or guarding. MSK:Extremities w/o deformity, Normal Active ROM, very mild discomfort to the left lateral ribs around ribs 6 compared to the right. No central chest tenderness. Skin: Warm, Dry. No rashes or lesions. Neuro: Normal Muscle tone, No focal neurological deficits. Psych: Awake, Alert, & Oriented x3. Appropriate mood and affect. Const Vital Signs, click to edit/add: Vital Signs - 24 hr 04/18/25 13:47 04/18/25 14:02 04/18/25 14:03 Temperature 96.5 F L Pulse Rate 69 74 Pulse Rate [Pulse Oximeter] 82 Respiratory Rate 16 Blood Pressure 128/99 H Blood Pressure [Right Upper Arm] 106/71 Pulse Oximetry 99 98 95 Oxygen Delivery Method Room Air 04/18/25 14:15 04/18/25 14:16 04/18/25 14:17 Temperature Pulse Rate 68 69 70 Pulse Rate [Pulse Oximeter] Respiratory Rate 16 20 Blood Pressure 126/75 Blood Pressure [Right Upper Arm] Pulse Oximetry 96 95 97 Oxygen Delivery Method 04/18/25 14:30 04/18/25 14:33 Temperature Pulse Rate 65 65 Pulse Rate [Pulse Oximeter] Respiratory Rate Blood Pressure 124/60 Blood Pressure [Right Upper Arm] Pulse Oximetry 95 98 Oxygen Delivery Method Course Vital Signs Vital signs: Initial Vital Signs Temperature 96.5 F L 04/18/25 13:47 Temperature Source Temporal Artery Scan 04/18/25 13:47 Pulse Rate 82 04/18/25 13:47 Respiratory Rate 16 04/18/25 13:47 Blood Pressure 106/71 04/18/25 13:47 Blood Pressure Mean 82 04/18/25 13:47 Blood Pressure Position Sitting 04/18/25 13:47 Pulse Oximetry 99 04/18/25 13:47 Oxygen Delivery Method Room Air 04/18/25 13:47 Vital Signs Temperature 96.5 F L 04/18/25 13:47 Pulse Rate 82 04/18/25 13:47 Respiratory Rate 16 04/18/25 13:47 Blood Pressure 106/71 04/18/25 13:47 Pulse Oximetry 99 04/18/25 13:47 Oxygen Delivery Method Room Air 04/18/25 13:47 Temperature 96.5 F L 04/18/25 13:47 Pulse Rate 65 04/18/25 14:33 Respiratory Rate 20 04/18/25 14:16 Blood Pressure 124/60 04/18/25 14:33 Pulse Oximetry 98 04/18/25 14:33 Oxygen Delivery Method Room Air 04/18/25 13:47 MDM - Chest Pain MDM Narrative Medical decision making narrative: Patient is 64-year-old female presenting for chest pain. The differential diagnosis of chest pain is broad and includes common etiologies such as musculoskeletal strain, GERD, pneumonia, etc. More serious etiologies considered include PE, coronary artery disease, pneumothorax, aortic dissection, aortic aneurysm. Vital signs otherwise appear stable and aortic dissection and aortic aneurysm seem unlikely. Will do chest x-ray to look for pneumothorax or pneumonia. EKG and troponin ordered to look for cardiac abnormalities. D-dimer ordered. Will also order COVID swabs, CBC, BMP, magnesium. Lab work returned showing no acute concerning abnormalities. Age adjusted D-dimer within normal limits. EKG shows no concerning abnormalities. Chest x-ray reviewed by myself the radiologist shows no concerning findings. Initial troponin within normal limits. Is currently asymptomatic. Considering then chest pain started right before she came I do think it is important to repeat the troponin. Repeat troponin is also negative. Seems like air pain is likely from cramps. She otherwise is doing well. Asymptomatic throughout her time in the emergency department. On my review vital signs are stable throughout time in in the emergency department. Oximetry stayed in the mid to high 90s. quality assurance monitor final showed no concerning arrhythmias. She will be discharged is agreeable to this plan. Lab Data Labs: Lab Results 04/18/25 04/18/25 04/18/25 Range/Units 14:07 14:15 16:10 WBC 6.75 (4.50-11.00) K/uL RBC 4.27 (4.00-5.20) m/uL Hgb 11.4 L (12.0-16.0) gm/dL Hct 34.8 (33.0-51.0) % MCV 82 (80-100) fL MCH 27 (26-34) pg MCHC 33 (32-36) gm/dL RDW Coeff of [place] 18.8 H (11.5-15.5) % Plt Count 285 (140-440) K/uL Neut % (Auto) 65.6 (42.0-72.0) % Lymph % (Auto) 20.9 (20-44) % [place] % (Auto) 8.7 (0.0-11.0) % Eos % (Auto) 4.4 (0.0-7.0) % Baso % (Auto) 0.3 (0.0-3.0) % Neut # (Auto) 4.42 (1.7-7.0) K/uL Lymph # (Auto) 1.41 (0.90-2.90) K/uL [place] # (Auto) 0.60 (0.00-0.90) K/UL Eos # (Auto) 0.30 (0.00-0.50) K/uL Baso # (Auto) 0.02 (0.00-0.30) K/uL Abs Immat Gran (auto) 0.01 (0.00-0.30) K/uL Imm/Tot Granulo (auto) 0.1 % D-Dimer Quant (PE/DVT) 0.64 H (0.00-0.50) ug/ml Sodium 132 L (135-149) mmol/L Potassium 3.8 (3.6-5.1) mmol/L Chloride 97 (96-114) mmol/L Carbon Dioxide 27 (20-32) mmol/L Anion Gap 8 (7-15) mEq/L BUN 9 (7-30) mg/dL Creatinine 0.7 (0.5-1.5) mg/dL Estimated Creat Clear 48.43 Estimated GFR 96 ml/min Glucose 128 H (60-115) mg/dL Calcium 8.9 (8.4-10.6) mg/dL Magnesium 1.8 (1.5-2.6) mg/dL SARS-CoV-2 (PCR) Negative SARS-CoV-2 (Negative) Influenza Type A (PCR) Negative PCR FLU A (Negative) Influenza Type B (PCR) Negative PCR FLU B (Negative) RSV (PCR) Negative PCR RSV (Negative) POC Troponin I 0.00 L 0.00 L (0.01-0.04) ng/ml Imaging Data Chest x-ray: Attestation: I have reviewed the pertinent imaging results. Radiologist's impression: No acute cardiopulmonary process. Dictated by Kb Ruano MD @ 04/18/2025 2:59:32 PM ECG Data Attestation: I personally reviewed and interpreted this ECG as follows: Prior ECG tracings: not available for review Interpretation: Normal sinus rhythm with a rate of 68 beats per minute, normal intervals, normal axis, no ST abnormalities. There is some T-wave flattening in the lateral leads no comparison. Right bundle branch block Discharge Plan Discharge Clinical Impression: Atypical chest pain Patient Disposition: Home, Self-Care Condition: Stable Instructions: Noncardiac Chest Pain (ED) Additional Instructions: Back I do not see any acute concerning abnormalities. I cannot say exactly what is causing chest pain but may be from cramps. Recommend close follow-up with the primary care provider and return to emergency department for new or worsening symptoms. Prescriptions: No Action latanoprost 0.005 % drops 1 drp ophthalmic (eye) Zyrtec 10 mg capsule 10 mg PO QDAY PRN aspirin [Adult Aspirin Regimen] 81 mg tablet,delayed release (DR/EC) 81 mg PO QDAY FeSO4 PO DAILY Patient Comments: Iron tab daily fluoxetine 40 mg capsule 40 mg PO QAM atorvastatin 20 mg tablet 20 mg PO DAILY omeprazole 40 mg capsule,delayed release(DR/EC) 40 mg PO DAILY bupropion HCl 150 mg tablet extended release 24 hr 150 mg PO DAILY Follow Up/Referrals: Provider,Not a Local [Primary Care Provider, Family Practice] Stand Alone Forms: [facility] Info Instructions
[2025-04-18 14:25] LABS: Hematocrit* 34.8 % (33.0-51.0); Hemoglobin* 11.4 gm/dL (12.0-16.0); Immature Granulocytes Abs Auto 0.01 K/uL (0.00-0.30); Immature Granulocytes Pct Auto 0.1 %; Lymphocytes Absolute Auto 1.41 K/uL (0.90-2.90); Mean Corpuscular HGB Conc 33 gm/dL (32-36); Mean Corpuscular Hemoglobin 27 pg (26-34); Mean Corpuscular Volume 82 fL (80-100); RDW Coefficient of Variation % 18.8 % (11.5-15.5); Red Blood Count* 4.27 m/uL (4.00-5.20); White Blood Count* 6.75 K/uL (4.50-11.00)
[2025-04-18 14:27] LABS: Slide Review Reflex No
[2025-04-18 14:37] LABS: Chloride* 97 mmol/L (96-114); Sodium* 132 mmol/L (135-149)
[2025-04-18 14:37] LABS: Troponin, Point-of-Care* 0.00 ng/ml (0.01-0.04)
[2025-04-18 14:38] LABS: Potassium* 3.8 mmol/L (3.6-5.1)
[2025-04-18 14:40] LABS: Anion Gap 8 mEq/L (7-15); Blood Urea Nitrogen* 9 mg/dL (7-30); Carbon Dioxide* 27 mmol/L (20-32); Creatinine* 0.7 mg/dL (0.5-1.5); Est. Creatinine Clearance* 48.43; Estimated Glomerular Filt Rate 96 ml/min
[2025-04-18 14:41] LABS: Calcium* 8.9 mg/dL (8.4-10.6); Glucose* 128 mg/dL (60-115)
[2025-04-18 15:00] LABS: D Dimer Quantitative* 0.64 ug/ml (0.00-0.50)
[2025-04-18 15:07] LABS: PCR FLU A Negative PCR FLU A (Negative); PCR FLU B Negative PCR FLU B (Negative); PCR RSV Negative PCR RSV (Negative); SARS PCR* Negative SARS-CoV-2 (Negative)
[2025-04-18 16:21] LABS: Troponin, Point-of-Care* 0.00 ng/ml (0.01-0.04)
== END 2025-04-18 16:31 | disposition home or self-care (01) ==
PROVIDERS: Emergency Provider Student in an Organized Health Care Education/Training Program
DX: R07.9 Chest pain, unspecified (principal)
CPT/HCPCS: 36415; 71046; 80048; 83735; 84484; 85025; 85379; 87637; 99284

== ENCOUNTER 2025-04-20 11:28 | Outpatient (CLI) | payer MEDICARE, SELFPAY | END 2025-04-20 11:29 | disposition home or self-care (01) | LOC: NFLDREF 04-22 16:55 | PROVIDERS: Visit Provider Nurse Practitioner Family | DX: N30.91 Cystitis, unspecified with hematuria (principal); B96.20 Unspecified Escherichia coli [E. coli] as the cause of diseases classified elsewhere | CPT/HCPCS: 87086 ==

== ENCOUNTER 2025-09-01 03:00 | Emergency (ER) | payer MEDICARE, SELFPAY ==
--- OUTSIDE RECORDS SUMMARY | 2025-09-01 03:02 | XMS_ITS | Clinical Summary ---
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 For routine questions regarding patient records, call [phone] during business hours, M-F 8:00 AM - 5:00 PM Central Time. Record requests for emergency care only can be directed to [phone] at any time.[facility] Allergies Active Allergy Reactions Criticality Noted Date [...] 40 mg by mouth. 1 Active omega 5-ztc-bph-fish oil 1,000 mg (120 mg-180 mg) capsule [...] Years Used Date Smoking Tobacco: Former Cigarettes 0 Q uit: 1982 Smokeless Tobacco: Never Alcohol Use Standard Drinks/Week Comments No 0 (1 standard drink = 0.6 oz pur e alcohol) 37 years sober [facility] Utilities Answer Date Recorded In the past 12 months has Written, gas, oil, or water [employer] threatened to shut off services in your [...] your living situation today? I have a [facility] place to live 07/17/2024 Comments No Sex and Gender Information Value Date Recorded Sex Assigned at Not on file Legal Sex Female 12:38 PM [employer] Gender Identity Not on file Sexual Orientation [...] Health Maintenance Due Date Last Done Comments CT Colonography 1959 Cologuard 1959 Diabetic Eye Exam 1959 Diabetic Office Visit with Foot Exam 1959 FIT 1959 HIV Screening 1959 Hepatitis C Screening 1959 Office Visit for Blood Pressure Check / Re-check 1959 Urine Albumin 1959 RSV vaccine - (32-36 weeks) or 50+ years (1 - Risk 50-74 years 1-dose series) 2009 Pneumococcal vaccine (50+ years) (2 of 2 - PCV) 06/26/2024 06/26/2023, 07/10/2022, 07/10/2021, Additional history exists Depression Screening (Annual PHQ-2) 09/26/2024 Fall Risk Screen (Annual) 09/26/2024 COVID-19 Vaccine ( season) 2025 10/01/2024, 07/20/2023, 09/11/2022, Additional history exists Influenza Vaccine (#1) 2025 , 07/20/2023, 06/26/2023, Additional history exists Hemoglobin A1C 12/11/2025 06/13/2025, 04/2 04/2025, 10/01/2024, Additional history exists Mammogram 01/30/2026 01/30/2025, 05/0 03/2025, 11/09/2022, Additional history exists Creatinine Level (Kidney Function Test) 02/01/2026 02/01/2025, 05/17/2024, 01/16/2024, Additional history exists Lipid (Cholesterol) Screening 01/15/2029 [...] this topic Medical Devices Implanted Type Area Wash Box Operator Device Identifier Shelf Expiration Date Model / Serial / Lot Bladder Stimulator Sacral Nerve Stimulator Right: Buttock Procedures Procedure Name Priority Date/Time Associated Diagnosis Comments BASIC METABOLIC PANEL, S/P STAT 08/27/2021 1:01 PM [employer]GRAM DIRECT[employer] WORK HEMOGLOBIN A1C, B STAT 11/07/2018 1:4 5 PM [employer]GRAM DIRECT[employer] WORK from Last 3 Months or Most Recently Relevant to Health Maintenance Results * (ABNORMAL) Basic Metabolic Panel (08/27/2021 1:01 PM PROGRAM DIRECTOR GROUP WORK) Pathologist [facility] Potassium, P 3.7 3.6 - 5.2 mmol/L 08/27/2021 1:24 PM [employer]GRAM [employer] CNFL Sodium, P 132(L) 135 - 145 mmol/L 08/27/2021 1:24 PM [employer]GRAM [employer] [facility] Chloride, P 97(L) 98 - 107 mmol/L 08/27/2021 1:24 PM [employer]GRAM [employer] [facility] Bicarbonate, P 25 22 - 29 mmol/L 08/27/2021 1:24 PM [employer]GRAM [employer] CNFL Anion Gap, P 10 7 - 15 08/27/2021 1:24 PM [employer]GRAM [employer] CNFL BUN (Blood Urea Nitrogen), P 11 6 - 21 mg/dL 08/27/2021 1:24 PM PROGRAM [employer] [facility] Creatinine 0.75 0.59 - 1.04 mg/dL 08/27/2021 1:24 PM PROGRAM DIRECT[employer] WORK CNFL eGFR-Black/Afri can [place] >90 >=60 mL/min/BSA 08/27/2021 1:24 PM PROGRAM [employer] CNFL Comment: ----ADDITIONAL INFORMATION---- Estimated GFR calculated using the 2009 CKD_EPI creatinine equation. eGFR Non-Black/Afric an [place] 86 >=60 mL/min/BSA 08/27/2021 1:24 PM PROGRAM [employer] WORK [facility]FL Comment: ----ADDITIONAL INFORMATION---- Estimated GFR calculated using the 2009 CKD_EPI creatinine equation. Calcium, Total, P 8.7(L) 8.8 - 10.2 mg/dL 08/27/2021 1:24 PM PROGRAM [employer] WORK CNFL Glucose, P 121 70 - 140 mg/dL 08/27/2021 1:24 PM PROGRAM DIRECT[employer] WORK CNFL Blood (Blood, Venous) 08/27/2021 1:01 PM PROGRAM DIRECT[employer] WORK 08/27/2021 1:04 PM PROGRAM DIRECT[employer] WORK Carolann Miranda APRN, C.N.P., D.N.P. LAB BLOOD ADD-ON Final Result [facility] [address] [place] [id number], [facility] CNFL [facility] in [address] [address] from Last 3 Months or Most Recently Relevant to Health Maintenance Insurance [facility] Care Teams Ice Cream Truck Driver Relationship Specialty Start Date End Date Elsewhere, Pcp PCP - General Family Medicine 11/07/18
--- OUTSIDE RECORDS SUMMARY | 2025-09-01 03:02 | XMS_ITS | Clinical Summary ---
Author Organization [facility] Address [address] [place] [address] Care Team Providers Care Programs Manager Name Role Phone Carolann Agosto MD Primary Care Pro vider Allergies Active Allergy Reactions Criticality Noted Date Comments Fluconazole Rash 06/15/2006 Nitroimidazoles Rash 06/15/2006 Metronidazole *Unknown 01/26/2010 Medications blood-glucose meterIndications:Diabet es mellitus without complication [...] daily. 90 tablet 3 07/18/20 20 Active latanoprost (XALATAN) 0.005 % ophthalmic solution INSTILL ONE DROP INTO RIGHT EYE AT BEDTIME* 04/15/20 23 Active acetaminophen (TYLENOL ORAL) Take by mouth. Active atorvastatin 20 mg tabletIndications:Pure hypercholesterolemia Take 1 Tablet (20 mg) by mouth once daily. 90 Tablet 3 01/22/20 25 Active buPROPion 150 mg Extended-Release tabletIndications:Anxie ty state Take 1 Tablet (150 mg) by mouth once daily. 90 Tablet 01/22/20 25 Active FLUoxetine 40 mg capsuleIndications:Anxi ety state Take 1 Capsule (40 mg) by mouth once daily in the morning. 90 Capsule 01/22/20 25 Active triamcinolone 0.1 % ointmentIndications:Pru vanessa nodularis Apply topically to affected area(s) two times daily. Do not use on face, genitals, or in body folds. 453.6 g 2 01/22/20 25 Active ascorbic acid (vitamin C) (Vitamin C) 500 mg tablet 01/26/20 Active Ferrous Sulfate 27 mg iron tab 01/25/20 25 Active blood sugar diagnostic (Contour Next Test Strips) stripIndications:Diabet es mellitus without complication (HC) USE TO TEST ONCE A DAY 100 Each 05/27/20 Active lancets (Microlet Lancet)Indications:Diab etes mellitus without complication (HC) As directed once daily. Dispense item covered by patient insurance (Accu Chek FastClix) 100 Each 05/30/20 25 Active ketoconazole 2% shampoo (NIZORAL) 2 % shampooIndications:Sebo rrheic dermatitis Lather on damp scalp, allow to sit for several minutes prior to rinsing. Safe for daily use. 120 mL 06/04/20 25 Active omeprazole (PRILOSEC) 40 mg Delayed-Release capsuleIndications:Farrah roesophageal reflux disease, unspecified whether esophagitis present Take 1 Capsule (40 mg) by mouth once daily before a meal. 90 Capsule 06/13/20 25 Active Active Problems Problem Noted Date Diagnosed Date Hyponatremia 06/26/2025 Glaucoma of right eye 01/16/2024 Depression, recurrent [...] Encounters Date Type Department Care Team Description 08/06/2025 Telephone [facility] [address] [place] [address] Carolann Agosto MD Referral 08/01/2025 11:15 AM [employer] Orders Only [facility] [address] [place] [address] Lab, Farm [facility] 08/01/2025 Travel 06/26/2025 Orders Only [facility] [address] [place] [address] Carolann Agosto MD <No scans attached> 06/25/2025 11:30 AM CDT Orders Only [facility] [address] [place] [address] Lab, [facility] 06/25/2025 Travel 06/20/2025 10:30 AM CDT Ancillary Procedure [facility] [address] [place] [id number] 06/19/2025 Travel 06/18/2025 Orders Only [facility] [address] [place] [address] Cintia Coulter NP <No scans attached> 06/14/2025 Orders Only [facility] Scanner 1 scan: (1-Ord) INCOMING RECORDS-DIAGNOSTIC TEST, UNKNOWN FACILITY, 06/14/2025 06/14/2025 Orders Only [facility] Scanner 1 scan: (1-Ord) INCOMING RECORDS-DIAGNOSTIC TEST, [facility], 06/14/2025 06/13/2025 12:55 PM CDT Office Visit [facility] [address] [address] Carolann Agosto MD 06/13/2025 Travel 06/04/2025 2:30 PM CDT Office Visit [facility] [address] [facility] [place] [address] [place] [address] Rosa Horne, Derm Problem 06/04/2025 Travel from Last 3 Months Immunizations Immunization Administration [...] Free 10/01/2024 Influenza,CCIIV4 PRESERV FREE 06/26/2017 Pneumococcal Conj 20-valent (Prevnar 20) 06/13/2025 Pneumococcal Poly,23-Valent (Pneumovax) 07/10/2022,07/10/2021,04/24/2021 Pneumococcal, Unspecified 06/26/2023,07/10/2021, 06/26/2021 Tdap 02/15/2021,04/02/2020,01/12/2010 Zoster (Shingrix-RZV, recombinant) 08/04/2020, Zoster (Zostavax-ZVL, live) 05/23/2005, 1 Family History Medical History Relation Name Comments Stroke Brother 2 Fatal Brain Ane urysm age 36 Allergies Child Saad Alcoholism Father Arthritis Father Heart Disease Father [place] age 48: tri ple CABG x2, bilat [...] isolated from those around you? 0 01/21/2025 Alcohol Use Answer Date Recorded How often do you have a drink containing alcohol ? 0 06/13/2025 How many drinks containing a lcohol do you have on a typical day when you are drinking? 0 06/13/2025 How often do you have five or more drinks on one occasion? 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 Not on file Not on file [...] Sign Reading Time Taken Comments Blood Pressure 118/80 06/13/2025 1:12 PM CDT Pulse 78 06/13/2025 1:12 PM CDT Temperature 36.8 C (98.2 F) 10/01/2024 10:11 AM [employer] Respiratory Rate 19 12/28/2022 1:04 PM CDT Oxygen Saturation 98% 10/01/2024 10:11 AM [employer] Inhaled Oxygen Concentration - - Weight 75.5 kg (166 lb 6.4 oz) 06/13/2025 1:12 P M CDT Height 160.5 cm (5' 3.19) 06/13/2025 1:12 PM CD T Body Mass Index 29.3 06/13/2025 1:12 PM CDT Plan of Treatment Upcoming Encounters Date Type Department Care Team (Late st Contact Info) Description 09/03/2025 1:00 PM [employer] Office Visit [facility] [address] [place] [address] [place] [address] [place] [address] 10/17/2025 10:25 AM [employer] Office Visit [facility] [address] [place] [address] Carolann Agosto MD [address] [facility] [place] [address] Health Maintenance Due Date Last Done Comments HIV for age 15-65 1974 DEXA/DXA scan for age 65+ 2024 12/14/2022, Influenza Vaccine (#1) 2025 , 07/20/2023, 06/26/2023, Additional history exists COVID-19 vaccine series ( season) 2025 04/17/2025, 10/01/2024, 07/20/2023, Additional history exists Medicare Wellness for age 65+ 01/22/2026 01/21/2025 Depression screening for age 12+ 01/29/2026 01/29/2025, 01/21/2025, 01/21/2025, Additional history exists Mammogram for age 45-75 01/30/2026 01/31/20 25, 08/10/2023, 11/09/2022, Additional history exists BMI (ht and wt on same day) for age 18+ 06/13/2026 06/13/2025, 01/21/2025, 10/01/2024, Additional history exists Pap test for age 21-65 02/24/2028 , 02/23/2023, 07/23/2019, Additional history exists Lipids for age 45-75 01/21/2030 01/21/2025, 01/16/2024, 11/29/2022, Additional history exists Colonoscopy through age 75 06/23/2030 06/23/2020, Tetanus booster 02/15/2031 02/15/2021, 07/04/2020, 01/12/2010 RSV vaccine for adults or (1 - 1-dose 75+ series) 2034 Hepatitis B series for 19+ Completed 10/29, 10/29/2013, 05/03/2013, Additional history exists Hepatitis C screening for ag e 18-79 Completed 04/02/2020 Zoster (shingles) series for age 50+ Completed 08/04/2020, 04/02/2020, 05/23/2005, Additional history exists Pneumococcal series for age 50+ Completed 06/13/2025, 06/26/2023, 07/10/2022, Additional history exists Medical Devices Implanted Type Area Primary Health Organisation Manager Device Identifier Shelf Expiration Date Model / Serial / Lot Lead Tined 28cm Interstim - [id number] Implanted:Qty: 1 on 08/01/2014 by Britany Longoria MD at [facility] Right: Sacrum Medtronic Pain Therapy 02/11/2018 [id number] / / [id number] Stimulator Neuro Interstim Ii - [id number] Implanted:Qty: 1 on 08/01/2014 by Britany Longoria MD at [facility] Right: Sacrum Med[employer] Pain Therapy 07/23/2015 [id number]# / [id number] / [id number] - [id number] Implanted:Qty: 1 on 12/06/2014 by Britany Longoria MD at [facility] N/A: Vagina Coloplast Yesi 01/24/2016 [id number] / [id number] / [id number] Description:[employer] Single [employer] ision Sling Lead Kit 4.32mm Spacing 28cm Length Interstim - [id number] Implanted:Qty: 1 on 11/25/2021 by Jillian Simmons MD at [facility] N/A: Buttock Medtronic Pain Therapy 04/27/2023 [id number] / / [id number] Medtronic Interstim X Implanted:Qty: 1 on 11/25/2021 by Jillian Simmons MD at [facility] N/A: Buttock Medtronic 05/23/2023 [id number] / [id number] / Procedures Procedure Name Priority Date/Time Associated Diagnosis Comments SODIUM Routine 08/01/2025 11:18 AM [employer] Hyponatremia SODIUM Routine 06/25/2025 11:[address] ABDOMEN RENAL WWO Routine 06/20/2025 10:30 AM CDT Iron deficiency anemia, unspecified iron deficiency anemia type Renal cyst [facility] 06/14/2025 12:00 AM CDT [facility] 06/14/2025 12:00 AM CDT URINE ALBUMIN TO CREATININE RATIO, RANDOM Routine 06/13/2025 2:08 PM CDT DIABETES MELLITUS TYPE II HEMOGLOBIN A1C MONITORING (POCT) Routine 06/13/2025 1:21 PM CDT DIABETES MELLITUS TYPE II BASIC METABOLIC PANEL Add On 06/13/2025 12:58 PM CDT Renal cyst CBC WITH AUTO DIFFERENTIAL Routine 06/13/2025 12:58 PM CDT Iron deficiency anemia, unspecified iron deficiency anemia type CBC WITH AUTO DIFFERENTIAL Routine 06/13/2025 12:58 PM CDT Iron deficiency anemia, unspecified iron deficiency anemia type FERRITIN Routine 06/13/2025 12:58 PM CDT Iron deficiency anemia, unspecified iron deficiency anemia type IRON PLUS IRON BINDING CAP Routine 06/13/2025 12:58 PM CDT Iron deficiency anemia, unspecified iron deficiency anemia type XR MAMMO LION BILAT SCREEN Routine 01/30/2025 3:13 PM CDT Visit for screening mammogram LIPID PANEL W REFLEX MEASURED LDL Routine 01/21/2025 10:20 AM CDT Pure hypercholesterolemia HPV HIGH RISK Routine 02/23/2023 12:00 PM CDT XR DXA BONE DENSITY 2 SITES AXIAL Routine 12/14/2022 2:56 PM CDT Asymptomatic postmenopausal state SCAN-COLONOSCOPY 06/23/2020 8:30 AM CDT ANTI HCV Add On 04/02/2020 9:34 AM CDT Need for hepatitis C screening test from Last 3 Months or Most Recently Relevant to Health Maintenance Results * (ABNORMAL) SODIUM (08/01/2025 11:18 AM [employer]) Only the most recent of2 resultswithin the time period is included. SODIUM 131(L) 135 - 146 mmol/L 08/02/2025 3:10 AM [employer] [facility] Blood BLOOD SPECIMEN / Unknown [facility] / Unknown 08/01/2025 11:18 AM [employer] 08/01/2025 11:18 AM [employer] us Carolann Agosto MD CHEMISTRY F inal Result [facility] [address] [place] [address], * CT ABDOMEN RENAL WWO (06/20/2025 10:30 AM CDT) Anatomical Region Laterality Modality Abdomen, KIDNEYS Computed Tomogr aphy 06/20/2025 10:3 0 AM CDT Impressions 06/20/2025 2:46 PM CDT 1. No solid renal mass or upper tract urothelial lesion where visualized. No stones. No renal cyst that meets criteria for follow up. Narrative 06/20/2025 2:46 PM CDT For Patients: As a result of the Cures Act, medical imaging exams and procedure reports are released immediately into your electronic medical record. You may view this report before your referring provider. If you have questions, please contact your health care provider. EXAM: CT ABDOMEN RENAL WWO LOCATION: [facility] DATE: 06/20/2025 INDICATION: Iron Deficiency Anemia, Unspecified Iron Deficiency Anemia Type Renal Cyst COMPARISON: Ultrasound kidney 04/30/2022 TECHNIQUE: CT scan of the abdomen was performed before and after injection of IV contrast. Multiplanar reformats were obtained. Dose reduction techniques were used. CONTRAST: Omnipaque [id number] FINDINGS: LOWER CHEST: No pleural effusion. HEPATOBILIARY: No suspicious hepatic lesion. No biliary ductal dilation. Noninflamed gallbladder. PANCREAS: No ductal dilation. No mass. SPLEEN: No splenomegaly. No mass. ADRENAL GLANDS: No nodules. KIDNEYS/BLADDER: Focal cortical scarring in the right lower pole adjacent to a subcentimeter cyst, previously characterized as benign on the 04/30/2022 ultrasound, no follow up needed. A tiny hypodensity in the right lower pole is too small to characterize but could represent a tiny cyst. No solid mass. No hydronephrosis. No stone. No upper tract urothelial lesion in the visualized abdomen. BOWEL: No obstruction or inflammatory change were visualized. LYMPH NODES: No adenopathy. VASCULATURE: No abdominal aortic aneurysm. MUSCULOSKELETAL: No destructive osseous lesions. Musculoskeletal degenerative changes. Procedure Note Louie Mcpherson MD - 06/20/2025 For Patients: As a result of the Cures Act, medical imagingexams and procedure reports are released immediately into your electronicmedical record. You may view this report before your referring provider.If you have questions, please contact your health care provider. EXAM: CT ABDOMEN RENAL WWO LOCATION: [facility] DATE: 06/20/2025 INDICATION: Iron Deficiency Anemia, Unspecified Iron Deficiency AnemiaType Renal Cyst COMPARISON: Ultrasound kidney 04/30/2022 TECHNIQUE: CT scan of the abdomen was performed before and after injectionof IV contrast. Multiplanar reformats were obtained. Dose reductiontechniques were used. CONTRAST: Omnipaque [id number] FINDINGS: LOWER CHEST: No pleural effusion. HEPATOBILIARY: No suspicious hepatic lesion. No biliary ductal dilation.Noninflamed gallbladder. PANCREAS: No ductal dilation. No mass. SPLEEN: No splenomegaly. No mass. ADRENAL GLANDS: No nodules. KIDNEYS/BLADDER: Focal cortical scarring in the right lower pole adjacentto a subcentimeter cyst, previously characterized as benign on the04/30/2022 ultrasound, no follow up needed. A tiny hypodensity in theright lower pole is too small to characterize but could represent a tinycyst. No solid mass. No hydronephrosis. No stone. No upper tracturothelial lesion in the visualized abdomen. BOWEL: No obstruction or inflammatory change were visualized. LYMPH NODES: No adenopathy. VASCULATURE: No abdominal aortic aneurysm. MUSCULOSKELETAL: No destructive osseous lesions. Musculoskeletaldegenerative changes. IMPRESSION: 1. No solid renal mass or upper tract urothelial lesion where visualized.No stones. No renal cyst that meets criteria for follow up. us Carolann Agosto MD CT F inal Result * [facility] (06/14/2025 12:00 AM CDT) us Scanner OTHER Final Result * [facility] (06/14/2025 12:00 AM CDT) us Scanner OTHER Final Result * URINE ALBUMIN TO CREATININE RATIO, RANDOM (06/13/2025 2:08 PM CDT) ALB RAND URINE <12.0 mg/L 06/13/2025 7:38 PM CDT [facility] CREATININE,URINE 0.60 g/L 06/13/20 7:38 PM CDT [facility] ALBUMIN TO CREATININE RATIO,RAND UR 06/13/2025 7:38 PM CDT [facility] Comment:Urine Albumin below measurement range, unable to calculate. Urine URINE SPECIMEN / Unknown Non-Blood / Unknown 06/13/2025 2:08 PM CDT 06/13/2025 2:08 PM CDT Narrative [facility] - 06/13/2025 7:38 PM CDT If Albumin to Creatinine Ratio is elevated, consider the following: Elevations seen with incipient nephropathy associated with diabetes mellitus or hypertension. Stress, exercise,hematuria, and urinary tract infection may also produce elevated results. If clinically indicated, confirm with 24 Hour Albumin to Creatinine Ratio. Carolann Agosto MD URINE F inal Result Performing Organization Address City/[facility]/ZIP Co de Phone Number [facility] [address] [place] [address], * (ABNORMAL) HEMOGLOBIN A1C MONITORING (POCT) (06/13/2025 1:21 PM CDT) POC HEMOGLOBIN A1C 6.6(H) <6.0 % OF TOTAL HGB 06/13/2025 3:22 PM CDT [facility] Comment: Any point of care results exhibiting inconsistency with the patient's clinical status should be repeated using a different testing method. Blood BLOOD SPECIMEN / Unknown [facility] / Unknown 06/13/2025 1:21 PM CDT 06/13/2025 1:21 PM CDT Carolann Agosto MD CHEMISTRY F inal Result [facility] [place] [address], [place] [phone] [address], [place] [phone] * CBC WITH AUTO DIFFERENTIAL (06/13/2025 12:58 PM CDT) [facility] WHITE BLOOD CELL COUNT 6.4 3.8 - 10.8 Thousand/u L 06/14/2025 3:38 AM CDT [facility] RED BLOOD CELL COUNT 4.37 3.80 - 5.10 Million/uL 06/14/2025 3:38 AM CDT [facility] HEMOGLOBIN 12.4 11.7 - 15.5 g/dL 06/14/2025 3:38 AM CDT [facility] HEMATOCRIT 38.7 35.0 - 45.0 % 06/14/2025 3:38 AM CDT [facility] MCV 88.6 80.0 - 100.0 fL 06/14/2025 3:38 AM CDT [facility] MCH 28.4 27.0 - 33.0 pg 06/14/2025 3:38 AM CDT [facility] MCHC 32.0 32.0 - 36.0 g/dL 06/14/2025 3:38 AM CDT [facility] Comment: For adults, a slight decrease in the calculated MCHC value (in the range of 30 to 32 g/dL) is most likely not clinically significant; however, it should be interpreted with caution in correlation with other red cell parameters and the patient's clinical condition. RDW 14.7 11.0 - 15.0 % 06/14/2025 3:38 AM CDT [facility] PLATELET COUNT 320 140 - 400 Thousand/u L 06/14/2025 3:38 AM CDT [facility] MPV 9.8 7.5 - 12.5 fL 06/14/2025 3:38 AM CDT [facility] NEUTROPHILS 63 % 06/14/2025 3:38 AM CDT [facility] LYMPHOCYTES 25.6 % 06/14/2025 3:38 AM CDT [facility] MONOCYTES 6.5 % 06/14/2025 3:38 AM CDT [facility] EOSINOPHILS 4.0 % 06/14/2025 3:38 AM CDT [facility] BASOPHILS 0.9 % 06/14/2025 3:38 AM CDT [facility] ABSOLUTE NEUTROPHILS 4032 1500 - 7800 cells/uL 06/14/2025 3:38 AM CDT [facility] ABSOLUTE LYMPHOCYTES 1638 850 - 3900 cells/uL 06/14/2025 3:38 AM CDT [facility] ABSOLUTE MONOCYTES 416 200 - 950 cells/uL 06/14/2025 3:38 AM CDT [facility] ABSOLUTE EOSINOPHILS 256 15 - 500 cells/uL 06/14/2025 3:38 AM CDT [facility] ABSOLUTE BASOPHILS 58 0 - 200 cells/uL 06/14/2025 3:38 AM CDT [facility] Blood BLOOD SPECIMEN / Unknown [facility] / Unknown 06/13/2025 12:58 PM CDT 06/13/2025 12:58 PM CDT Carolann Agosto MD HEMATOLOGY F inal Result Performing Organization Address City/[facility]/ZIP Co de Phone Number [facility] [address] [address], [place] [phone] * IRON PLUS IRON BINDING CAP (06/13/2025 12:58 PM CDT) IRON, TOTAL 79 45 - 160 mcg/dL 06/14/2025 4:16 AM CDT [facility] IRON BINDING CAPACITY 386 250 - 450 mcg/dL (calc) 06/14/2025 4:16 AM CDT [facility] % SATURATION 20 16 - 45 % (calc) 06/14/2025 4:16 AM CDT [facility] Blood BLOOD SPECIMEN / Unknown [facility] / Unknown 06/13/2025 12:58 PM CDT 06/13/2025 12:58 PM CDT Carolann Agosto MD CHEMISTRY F inal Result Performing Organization Address City/[facility]/ZIP Co de Phone Number [facility] [address] [address], [place] [phone] * FERRITIN (06/13/2025 12:58 PM CDT) FERRITIN 29 16 - 288 ng/mL 06/14/2025 4:58 AM CDT [facility] Blood BLOOD SPECIMEN / Unknown [facility] / Unknown 06/13/2025 12:58 PM CDT 06/13/2025 12:58 PM CDT Carolann Agosto MD CHEMISTRY F inal Result [facility] [place] [facility] [address] [place] [address], * (ABNORMAL) BASIC METABOLIC PANEL (06/13/2025 12:58 PM CDT) SODIUM 133(L) 135 - 146 mmol/L 06/15/2025 3:34 AM CDT [facility] POTASSIUM 4.4 3.5 - 5.3 mmol/L 06/15/2025 3:34 AM CDT [facility] CARBON DIOXIDE 21 20 - 32 mmol/L 06/15/2025 3:34 AM CDT [facility] GLUCOSE 111(H) 65 - 99 mg/dL 06/15/2025 3:34 AM CDT [facility] Comment: Fasting reference interval For someone without known diabetes, a glucose value between 100 and 125 mg/dL is consistent with prediabetes and should be confirmed with a follow-up test. CALCIUM 9.1 8.6 - 10.4 mg/dL 06/15/2025 3:34 AM CDT [facility] CREATININE 0.82 0.50 - 1.05 mg/dL 06/15/2025 3:34 AM CDT [facility] BUN/CREATININE RATIO SEE NOTE: 6 - 22 (calc) 06/15/2025 3:34 AM CDT [facility] Comment: Not Reported: BUN and Creatinine are within reference range. EGFR 79 > OR = 60 mL/min/1. 73m2 06/15/2025 3:34 AM CDT [facility] UREA NITROGEN (BUN) 13 7 - 25 mg/dL 06/15/2025 3:34 AM CDT [facility] ELECTROLYTE BALANCE 14 7 - 17 mmol/L (calc) 06/15/2025 3:34 AM CDT [facility] CHLORIDE 98 98 - 110 mmol/L 06/15/2025 3:34 AM CDT [facility] Blood BLOOD SPECIMEN / Unknown [facility] / Unknown 06/13/2025 12:58 PM CDT 06/13/2025 12:58 PM CDT Carolann Agosto MD CHEMISTRY F inal Result [facility] [address] [place] [address], [place] [phone] * XR MAMMO LION BILAT SCREEN (01/30/2025 [...] For Patients: As a result of the Cures Act, medical imaging exams and procedure reports are released immediately into your electronic medical record. You may view this report before your referring provider. If you have questions, please contact your health care provider. XR MAMMO LION BILAT SCREEN [[id number]] CLINICAL HISTORY: This is an asymptomatic 64 y.o. patient. INDICATION FOR EXAM: Mammogram Screening. TECHNIQUE: CC and MLO views were obtained. This study was evaluated with the assistance of Computer-Aided Detection. Breast Tomosynthesis was used in interpretation. COMPARISON FILM: Yes 11/09/22 [facility] 09/23/21 [facility] FINDINGS: There are scattered areas of fibroglandular density. There are no dominant masses, suspicious micro calcifications or areas of architectural distortion. Carolann Agosto MD MAMMO F inal Result * LIPID PANEL W REFLEX MEASURED LDL (01/21/2025 10:20 AM CDT) CHOLESTEROL, TOTAL 163 <200 mg/dL [facility] HDL CHOLESTEROL 59 > OR = 50 mg/dL [facility] TRIGLYCERIDES 59 <150 mg/dL [facility] LDL-CHOLESTEROL 90 mg/dL (calc) [facility] Comment: Reference range: <100 Desirable range <100 mg/dL for primary prevention; <70 mg/dL for patients with CHD or diabetic patients with > or = 2 CHD risk factors. LDL-C is now calculated using the Radha calculation, which is a validated novel method providing better accuracy than the Friedewald equation in the estimation of LDL-C. Artemio CHAVES et al. LISSETTE. 2013;310(69): 5250-2357 (http://education.EVIAGENICS/faq/MAM474) CHOL/HDLC RATIO 2.8 <5.0 (calc) [facility] NON HDL CHOLESTEROL 104 <130 mg/dL (calc) [facility] Comment: For patients with diabetes plus 1 major ASCVD risk factor, treating to a non-HDL-C goal of <100 mg/dL (LDL-C of <70 mg/dL) is considered a therapeutic option. Blood BLOOD SPECIMEN / Unknown 01/21/2025 10:20 AM CDT 01/21/2025 10:22 AM CDT Narrative [facility] - 01/22/2025 3:22 AM CDT FASTING:YES FASTING: YES Carolann Agosto MD CHEMISTRY F inal Result [facility] [address] [place] [address], [facility] [address] [place] [address] * HPV HIGH RISK (02/23/2023 12:00 PM CDT) TYPE 16 Negative Negative 03/01/2023 5:14 PM CDT [facility] TYPE 18 Negative Negative 03/01/2023 5:14 PM CDT [facility] OTHER HIGH RISK TYPES Negative Negative 03/01/2023 5:14 PM CDT [facility] Other (Cervical) 02/23/2023 12:00 PM CDT 02/28/2023 9:43 AM CDT Narrative [facility] - 03/01/2023 5:14 PM CDT HPV types 16, 18, 31, 33, 35, 39, 45, 51, 52, 56, 58, 59, 66 and 68 DNA were undetectable or below the pre-set threshold. Methodology: Carola Mahamed 4800 HPV Test us Rosa Alfredo NP MICROBIOLOGY Final Res ult [facility] [address] [place] [address], * (ABNORMAL) XR DXA BONE DENSITY 2 [...] recommended in 3-5 years. Rosangela Ruggiero PA-C [facility] 12/15/2022 Narrative 12/15/2022 8:01 AM CDT For Patients: Results are automatically released to your [facility] ([employer]) account once available, in compliance with federal regulations. This means that you may see your results before your provider has had a chance to review them. Please allow 2-3 business days for your provider to comment on the results. XR DXA Bone Mineral Density (BMD) EXAM LOCATION: [address] [address] PATIENT NAME: Simi Morgan DATE OF : [...] two scanners are made by the same public relations studies director. PROCEDURE: Dual-energy x-ray absorptiometry performed with routine [...] Roche MD - 06/23/2020 7:56 AM CDT [facility] [address], [address], [place] [address] Patient Name: Simi Kevin Gender: Female Exam Date: 06/23/2020 Visit Number: [id number] Age: 59 Years 9 Months Date of : 1960 Attending MD: Gerardo Roche MD Medical Record#: [id number] ----- Procedure: Colonoscopy Indications: Colorectal cancer screening Referring MD: Carolann Dailey MD Primary MD: Carolann Dailey MD Medications: [...] 27.80 Race: Ethnicity: Not or Preferred Language: [place] cc: Carolann Dailey MD cc: Carolann Dailey MD [facility] [phone] us Gerardo Roche MD OTHER Amara hutton Result * ANTI HCV (04/02/2020 9:34 AM CDT) HEPATITIS C ANTIBODY Non-React binta Non-React binta 04/02/2020 2:00 PM CDT [facility] Comment:Antibodies to HCV no t detected; does not exclude the possibility of exposure to HCV. Blood BLOOD SPECIMEN / Unknown Venipuncture / Unknown 04/02/2020 9:34 AM CDT 04/02/2020 9:34 AM CDT us Carolann Agosto MD SEND OUTS F inal Result [facility] [address] [place] [address], [place] from Last 3 Months or Most [...] 6:23 PM 08/09/2014 2:27 PM Care Teams Programs Manager Relationship Specialty Start Date End Date Carolann Agosto MD [address] [place] [address] PCP - General Family Practice 01/16/13
--- OUTSIDE RECORDS SUMMARY | 2025-09-01 03:03 | XMS_ITS | Data Portability ---
Author Organization [facility] Address [address] [place] [address] Care Team Providers Care Day Care Worker Name Role Phone TERE MYERS Primary Care Provider Assessment No assessment recorded. Plan of Treatment Reminders Order Date Submit Date Provider Last Modified By Organization Details Last Modified Time Details Appointments PROCEDURE 45 2025 09:30A M ROVERTO M Not available Not available Not available ESTABLISH ED 20 2025 10:20A M Zhane Cameron PA-C Not available Not available Not available Lab urinalysi s, dipstick [address] [facility], [address], [address], [place], [address], 04/02/2024 09:53:35 urinalysi s, microscop ic [address] [facility], [address], [address], [place], [address], 09/30/2024 05:01:02 Referral None recorded. Procedures None recorded. Surgeries None recorded. Imaging None recorded. Medication Orders None recorded. Patient TargetsNo targets recorded. Patient Instructions Encounter Date Encounter Id Patient Instructions Last Modified By Organization Details Last Modified Time 01/31/2023 [id number] Test each progra m for at least 2 weeks, adjusting amplitude as needed. May remain on a program as long as it is effective. Return as needed for reprogramming. [email or web address] Not available 01/31/2023 09:26:48 04/02/2024 [id number] sp interstim revision stim is labial to see roverto and myself/PA in 1 year -- will schedule ; to call sooner and be seen if ANY concerns/issues still itchy near the IPG site; no erythema no rash only on the site. hx of vaginal bleeding, Fe. was seen with her pmd --thought she passed a stone but cant say she had hematuria. will check ua for blood and get a pelvic us. she will let me know after she thinks about the event for fu for evaluation on hematuria vs vaginal bleeding as these are very different problems. [email or web address] Not available 04/01/2024 21:42:59 04/02/2024 [id number] Test each progra m for at least 2 weeks, adjusting amplitude as needed. May remain on a program as long as it is effective. Return as needed for reprogramming. [email or web address] Not available 04/02/2024 09:37:06 01/18/2025 [id number] Overactive bladder (OAB): -S/p InterStim revision 11/25/[address] Simmons. -Reviewed overactive bladder care pathway and gave handout: timed voiding, urge suppression strategies, pelvic floor exercises, and avoidance of bladder irritants, pelvic floor physical therapy and OAB medications. -Patient has tried: 2+ meds prior to interstim -Follow up in year, sooner if needed [email or web address] Not available 01/18/2025 11:15:07 01/18/2025 [id number] Test each progra m for at least 2 weeks, adjusting amplitude as needed. May remain on a program as long as it is effective. Return as needed for reprogramming. [email or web address] Not available 01/18/2025 11:49:46 Reason for Referral None Reported. Results Created Date Observation Date Name Description Value Unit Range Abnormal Flag Note LastModifiedBy Organization Detail LastModifiedTime 02/01/20 23 01/31/2023 UA WITHO UT MICRO - CS URISC AN blood - uriscan NEGATI VE negati ve Not Available [facility] [address], [place], [address], 01/31/2023 09:57:03 02/01/20 23 01/31/2023 UA WITHO UT MICRO - CS URISC AN bilirubin - uriscan NEGATI VE mg/dL negati ve Not Available [facility] [address] [place] [address] [address], [place], [address], 01/31/2023 09:57:03 02/01/20 23 01/31/2023 UA WITHO UT MICRO - CS URISC AN urobilinogen - uriscan NORMAL mg/dL normal Not Available [facility] [address] [facility] [address], [place], [address], 01/31/2023 09:57:03 02/01/20 23 01/31/2023 UA WITHO UT MICRO - CS URISC AN ketones - uriscan NEGATI VE mg/dL negati ve Not Available [facility] [address] [place] [address] [address], [place], [address], 01/31/2023 09:57:03 02/01/20 23 01/31/2023 UA WITHO UT MICRO - CS URISC AN protein - uriscan NEGATI VE mg/dL negati ve Not Available [facility] [address] [place] [address] [address], [place], [address], 01/31/2023 09:57:03 02/01/20 23 01/31/2023 UA WITHO UT MICRO - CS URISC AN nitrites - uriscan NEGATI VE negati ve Not Available [facility] [address] [place] [address] [address], [place], [address], 01/31/2023 09:57:03 02/01/20 23 01/31/2023 UA WITHO UT MICRO - CS URISC AN glucose - uriscan NEGATI VE mg/dL negati ve Not Available [facility] [address] [place] [address] [address], [place], [address], 01/31/2023 09:57:03 02/01/20 23 01/31/2023 UA WITHO UT MICRO - CS URISC AN pH - uriscan 7.00 5.00-9 .00 Not Available [facility] [address] [facility] [address], [place], [address], 01/31/2023 09:57:03 02/01/20 23 01/31/2023 UA WITHO UT MICRO - CS URISC AN sp. gravity - uriscan 1.02 1.01-1 .03 Not Available [facility] [address] [place] [address] [address], [place], [address], 01/31/2023 09:57:03 02/01/2001/31/2023 UA WITHO UT MICRO - CS URISC AN leukocytes - uriscan NEGATI VE negati ve Not Available [facility] [address] [place] [address] [address], [place], [address], 01/31/2023 09:57:03 02/01/20 23 01/31/2023 UA WITHO UT MICRO - CS URISC AN color - uriscan YELLOW Not Available [facility] [address] [place] [address] [address], [place], [address], 01/31/2023 09:57:03 02/01/2001/31/2023 UA WITHO UT MICRO - CS URISC AN clarity - uriscan CLEAR Not Available [facility] [address] [place] [address] [address], [place], [address], 01/31/2023 09:57:03 02/01/2001/31/2023 UA WITHO UT MICRO - CS [...] for provi cortney revie w. Not Available [facility] [address] [address], [place], [address], 01/31/2023 09:57:03 04/02/20 24 04/02/2024 UA WITHO UT MICRO - CS URISC AN blood - uriscan NEGATI VE negati ve Not Available [facility] [address] [place] [address] [address], [place], [address], 04/02/2024 09:53:35 04/02/20 24 04/02/2024 UA WITHO UT MICRO - CS URISC AN bilirubin - uriscan NEGATI VE mg/dL negati ve Not Available [facility] [address] [place] [address] [address], [place], [address], 04/02/2024 09:53:35 04/02/20 24 04/02/2024 UA WITHO UT MICRO - CS URISC AN urobilinogen - uriscan NORMAL mg/dL normal Not Available [facility] [address] [facility] [address], [place], [address], 04/02/2024 09:53:35 04/02/20 24 04/02/2024 UA WITHO UT MICRO - CS URISC AN ketones - uriscan NEGATI VE mg/dL negati ve Not Available [facility] [address] [facility] [address], [place], [address], 04/02/2024 09:53:35 04/02/20 24 04/02/2024 UA WITHO UT MICRO - CS URISC AN protein - uriscan NEGATI VE mg/dL negati ve Not Available [facility] [address] [place] [address] [address], [place], [address], 04/02/2024 09:53:35 04/02/20 24 04/02/2024 UA WITHO UT MICRO - CS URISC AN nitrites - uriscan NEGATI VE negati ve Not Available [facility] [address] [place] [address] [address], [place], [address], 04/02/2024 09:53:35 04/02/20 24 04/02/2024 UA WITHO UT MICRO - CS URISC AN glucose - uriscan NEGATI VE mg/dL negati ve Not Available [facility] [address] [place] [address] [address], [place], [address], 04/02/2024 09:53:35 04/02/20 24 04/02/2024 UA WITHO UT MICRO - CS URISC AN pH - uriscan 7.00 5.00-9 .00 Not Available [facility] [address] [place] [address] [address], [place], [address], 04/02/2024 09:53:35 04/02/20 24 04/02/2024 UA WITHO UT MICRO - CS URISC AN sp. gravity - uriscan <=1.01 1.01-1 .03 Not Available [facility] [address] [place] [address] [address], [place], [address], 04/02/2024 09:53:35 04/02/20 24 04/02/2024 UA WITHO UT MICRO - CS URISC AN leukocytes - uriscan NEGATI VE negati ve Not Available [facility] [address] [facility] [address], [place], [address], 04/02/2024 09:53:35 04/02/20 24 04/02/2024 UA WITHO UT MICRO - CS URISC AN color - uriscan YELLOW lt. yellow ;yello w Not Available [facility] [address] [facility] [address], [place], [address], 04/02/2024 09:53:35 04/02/20 24 04/02/2024 UA WITHO UT MICRO - CS URISC AN clarity - uriscan CLEAR clear Not Available [facility] [address] [facility] [address], [place], [address], 04/02/2024 09:53:35 04/02/20 24 04/02/2024 UA WITHO [...] for provi cortney revie w. Not Available [facility] [address], [place], [address], 04/02/2024 09:53:35 02/10/20 23 02/09/2023 US, pelvi s, trans abdom inal + trans vagin al No observ ation record ed. [email or web address] [facility] [address], [place], [address], 02/10/2023 16:51:06 02/15/20 23 02/09/2023 US, pelvi s, compl ete No observ ation record ed. [email or web address] Not Available 02/14 13:47:07 Result Notes None recorded. Problems Name Problem SNOMED Code Status Onset Date Resolution Date Notes Provider Name and Address Organization Details Recorded Time Mixed urinary incontine nce 922566709 Active 2014 N39.46 : Mixed urinary incontine nce Not Available [facility] 0 23:41:50 Overactiv e urinary bladder 159171965 Active 2014 N32.81 : Bladder muscle dysfuncti on - overactiv e Not Available [facility] 0 23:41:50 Right upper quadrant pain 770927437 Active 2015 R10.11 : Right upper quadrant pain Not Available [facility] 0 23:41:50 Urge incontine nce of urine 17204802 Active 2017 N39.41 : Urge incontine nce of urine Not Available [facility] 0 23:41:50 Depressiv e disorder 43259447 Active 2023 JERMAIN Crawford [facility] 4 09:17:01 Diabetes mellitus 73073345 Active 2023 JERMAIN Crawford [facility] 4 09:17:25 Gastroeso phageal reflux disease 715054818 Active 2023 Mary robin [facility] 4 09:17:31 Hyperchol esterolem ia 24956312 Active 2023 Mary robin [facility] 4 09:17:39 History of statin therapy 263361339 Active 2023 Mary robin [facility] 4 09:17:47 Long-term current use of aspirin 81639909834 9103 Active 2024 Mary robin [facility] 5 10:37:28 Problem Notes None recorded. Procedures Surgical History Date Name Laterality Status Provider Name and Address Organization Details Recorded Time 01/19/20 25 COMPLEX VISIT completed Zhane Farias [facility] 01/17/2025 14:06:05 01/19/20 25 Sacral neuromodulation w/o reprogramming completed Roverto Ferraro [facility] 01/18/2025 11:57:42 04/02/20 24 Bladder Scan completed Marcela Haji [facility] 04/02/2024 09:43:31 04/02/20 24 Sacral Stimulator Reprogramming completed Roverto Ferraro [facility] 04/02/2024 10:16:02 02/01/20 23 Sacral neuromodulation w/o reprogramming completed Roverto Ferraro [facility] 01/31/2023 09:36:45 01/12/20 22 Sacral neuromodulation w/o reprogramming completed Roverto Ferraro [facility] 01/11/2022 15:17:00 12/05/19 22 Sacral neuromodulation w/o reprogramming completed Roverto Ferraro [facility] 12/04/2021 17:35:16 11/02/19 22 Past Data Reviewed completed Jillian Simmons MD [address] [place] [address],[address], [address], [facility] 10/30/2021 08:40:20 11/02/19 22 In and Out Catheterization- female completed Jillian Simmons MD [address] [place] [address],[address], [address], [facility] 11/02/2021 09:17:57 10/14/19 22 Sacral Stimulator Reprogramming completed Roverto Ferraro [facility] 10/14/2021 13:36:41 12/04/19 21 Diagnostic colonoscopy completed [...] Health Note 04/13/2022 14:01:45 03/24/20 12 Cystometrogram w/svp digital sales&up completed Not Available Health Note 04/13/2022 14:01:45 [...] Name and Address Organization Details Recorded Time 118114 Diflucan medicatio n Not available Not available Not available 03/05/2020 3 RxNorm Not Available [facility] 0 23:37:04 678360 Flagyl medicatio n Not available Not available Not available 03/05/2020 6 RxNorm Not Available [facility] 0 23:37:04 431318 fluconazo le medicatio n itching Not available Not available 01/18/20252018 4450 RxNorm Mary robin [facility] 5 10:36:58 435996 metronida zole medicatio n itching Not available Not available 01/18/20252018 6922 RxNorm Mary robin [facility] 5 10:36:54 870608 Product containin g nitroimid azole (product) medicatio n rash Not available Not available 01/18/20252005 60180 7004 SNOMED Mary robin [facility] 5 10:36:50 Medications Name Sig Start [...] Updated DateTime 01/18/2025 162.56 cm 28.8 kg/m2 71793.52 g Roverto Ferraro [facility] 01/18/2025 10:24:32 Date Recorded Body height Body mass index (BMI) Body weight Provider Name and Address Organization Details Last Updated DateTime 01/18/2025 162.56 cm 28.8 kg/m2 69229.52 g Mary Roman [facility] 01/18/2025 10:36:39 Date Recorded Body weight Provider Name an d Address Organization Details Last Updated DateTime 01/31/2023 32809.33 g Anita Sawyer [facility] 01/31/2023 09:29:44 Date Recorded Body height Body mass index (BMI) Body weight Provider Name and Address Organization Details Last Updated DateTime 01/31/2023 162.56 cm 28.8 kg/m2 66051.52 g Roverto Ferraro [facility] 01/31/2023 09:14:52 Date Recorded Body mass index (BMI) Body height Provider Name and Address Organization Details Last Updated DateTime 01/31/2023 28.5 kg/m2 162.56 cm Not Available Health Note 09:28:34 Date Recorded Body height Body mass index (BMI) Body weight Provider Name and Address Organization Details Last Updated DateTime 04/02/2024 162.56 cm 28.8 kg/m2 17754.52 g Roverto Ferraro [facility] 04/02/2024 09:30:50 Date Recorded Body height Body mass index (BMI) Body weight Provider Name and Address Organization Details Last Updated DateTime 04/02/2024 162.56 cm 28.8 kg/m2 32828.52 g Mary Roman [facility] 04/02/2024 09:15:46 Social History Question Answer Notes LastModified by Organizat ion Details LastModified Time Tobacco Smoking Status Former Smoker Not Available Health Note 03/30/2024 09:49:19 Do You Have An Advance Directive? No [email or web address] Information not available 01/18/2025 What Is Your Level Of Caffeine Consumption? Heavy 3-4 Large Mugs Coffee Daily, Soda Occasionally [email or web address] Information not available 04/02/2024 How Much Tobacco Do You Chew? None [email or web address] Information not available 03/30/2024 When Did You Quit Smoking? 16+yearssin celastcigar ette [email or web address] Information not available 04/02/2024 Race White [email or web address] Information n ot available 03/06/2020 Ethnicity Not /La licha [email or web address] Information not available 01/11/2022 Preferred Language Panamanian [email or web address] Information not available 01/11/2022 Number Of Pregnancies 5 [email or web address] Information not available 01/27/2023 Number Of Vaginal Deliveries 3 [email or web address] Information not available 01/27/2023 Number Of Caesarean Sections 0 [email or web address] Information not available 01/27/2023 Recreational Drug Use No [email or web address] Information not available 01/11/2022 Could You Be ? No [email or web address] Information not available 01/11/2022 Marital Status [email or web address] Informatio n not available 10/29/2021 Do You Have A Medical Power Of Operations Staff Specialist Security? No [email or web address] Information not available 01/18/2025 What Was The Date Of Your Most Recent Tobacco Screening? 01/18/2025 [email or web address] Information not available 01/18/2025 What Is Your Relationship Status? [email or web address] Information not available 03/30/2024 Are You Sexually Active? No [email or web address] Information not available 03/30/2024 Has Tobacco Cessation Counseling Been Provided? No [email or web address] Information not available 04/14/2022 How Many Years [...] other forms of tobacco or nicotine? No [email or web address] Information not available 11/02/2021 What is your level of alcohol consumption? None [email or web address] Information not available 04/02/2024 Do you or have you ever used smokeless tobacco? Never used smokeless tobacco [email or web address] Information not available 03/30/2024 Are you currently employed? No [email or web address] Information not available 01/18/2025 Do you or have you ever used e-cigarettes or vape? Never used electronic cigarettes [email or web address] Information not available 03/30/2024 Mental Status None recorded. Family History Nothing Reported Notes:Hypertension:Mother Psychriatric problems:Mother Psychriatric problems:Father Hypertension:Father Arthritis:Mother Arthritis:Father Strokes:Brother Cancer-reoriductive system :Father Asthma:Son Diabetes:Grandmother Medical History Condition Response Other N High Blood Pressure N Kidney Stones N Depression Y Sexually Transmitted Infection N Cancer N Bleeding Disorder N Lung Disease N GERD/Acid Reflux Y High Cholesterol Y Diabetes Y Heart Disease N Gynecological HistoryNo gynecological history recorded. Obstetrics History [...] virus, trivalent, PF 9 completed Not Available [facility] 01/18/2025 10:11:36 Influenza, split virus, trivalent, preservative 0 completed Not Available [facility] 01/18/2025 10:11:36 Influenza, split virus, trivalent, preservative 1 completed Not Available [facility] 01/18/2025 10:11:36 Influenza, split virus, trivalent, preservative 2 completed Not Available [facility] 01/18/2025 10:11:36 Influenza, split virus, trivalent, preservative 3 completed Not Available [facility] 01/18/2025 10:11:36 Influenza, split virus, trivalent, preservative 3 completed Not Available [facility] 01/18/2025 10:11:36 Influenza, split virus, quadrivalent, PF 4 completed Not Available [facility] 01/18/2025 10:11:36 zoster live 5 completed Not Available [facility] 01/18/2025 10:11:36 Influenza, split virus, quadrivalent, PF 5 completed Not Available [facility] 01/18/2025 10:11:36 influenza, unspecified formulation 6 completed Not Available [facility] 01/18/2025 10:11:36 Influenza, split virus, quadrivalent, preservative 7 completed Not Available [facility] 01/18/2025 10:11:36 Influenza, split virus, quadrivalent, PF 8 completed Not Available [facility] 01/18/2025 10:11:36 Influenza, split virus, quadrivalent, preservative 9 completed Not Available [facility] 01/18/2025 10:11:36 Tdap 0 completed Not Available [facility] 01/18/2025 10:11:36 Influenza, recombinant, quadrivalent, PF 0 completed Not Available [facility] 01/18/2025 10:11:36 Influenza, split virus, quadrivalent, preservative 0 completed Not Available [facility] 01/18/2025 10:11:36 COVID-19, mRNA, LNP-S, PF, 100 mcg/0.5mL dose or 50 mcg/0.25mL dose 1 completed Not Available [facility] 01/18/2025 10:11:36 COVID-19, mRNA, LNP-S, PF, 100 mcg/0.5mL dose or 50 mcg/0.25mL dose 1 completed Not Available [facility] 01/18/2025 10:11:36 pneumococcal polysaccharide PPV23 1 completed Not Available [facility] 01/18/2025 10:11:36 Influenza, recombinant, quadrivalent, PF 1 completed Not Available [facility] 01/18/2025 10:11:36 COVID-19, mRNA, LNP-S, bivalent, PF, 50 mcg/0.5 mL or 25mcg/0.25 mL dose 2 completed Not Available [facility] 01/18/2025 10:11:36 Influenza, recombinant, quadrivalent, PF 2 completed Not Available [facility] 01/18/2025 10:11:36 COVID-19, mRNA, LNP-S, PF, 50 mcg/0.5 mL 3 completed Not Available [facility] 01/18/2025 10:11:36 Influenza, split virus, quadrivalent, PF 3 completed Not Available [facility] 01/18/2025 10:11:36 COVID-19, mRNA, LNP-S, PF, 50 mcg/0.5 mL 5 completed Not Available [facility] 01/18/2025 10:11:36 Influenza, adjuvanted, trivalent, PF 5 completed Not Available [facility] 01/18/2025 10:11:36 SARS-COV-2 (COVID-19) vaccine, UNSPECIFIED 1 [...] 01/27/2023 22:22:04 zoster recombinant 0 completed Bijal Rodney null, [facility] 08/12/2023 15:00:23 zoster recombinant 0 completed Bijal Rodney null, [facility] 08/12/2023 15:00:29 Tdap 1 completed Bijal Rodney null, [facility] 08/12/2023 15:00:50 Tdap 0 completed Bijal Stevens null, [facility] 08/12/2023 15:01:01 Hep B, unspecified formulation 4 completed Bijal Stevens null, [facility] 08/12/2023 15:01:51 Hep B, unspecified formulation 3 completed Bijal Stevens null, [facility] 08/12/2023 15:02:00 Hep B, unspecified formulation 3 completed Bijal Stevens null, [facility] 08/12/2023 15:02:07 Past Encounters Encounter ID Performer Location Encounter Start Date Encounter Closed Date Diagnosis/Indication Diagnosis SNOMED-CT Code Diagnosis ICD10 Code Diagnosis IMO Codes Diagnosis Note [id number] ROSALBA Lisa [facility] [address] [place] [phone] 10/14/2021 11:11:37 10/14/2021 14:44:51 Overactive urinary bladder 800659747 N32.81 [id number] MD Trish [facility] [address] [place] [phone] 11/02/2021 08:55:17 11/02/2021 09:34:13 Mixed urinary incontinence 585474642 N39.46 improved stable Overactive urinary bladder 797231082 N32.81 improved stable Atrophic vaginitis 01340 000 N95.2 chronic worse [id number] MD Yehuda Kemp [address] [place] [address] [place] [id number] 12/04/2021 15:58:06 12/07/2021 10:57:20 Overactive urinary bladder 368342126 N32.81 improved stable [id number] MD Ariel KempWomiqu[facility] gallardo [address] [place] [address] [place] [id number] 12/07/2021 12:23:16 12/07/2021 14:33:44 Overactive urinary bladder 292803015 N32.81 improved stable Postoperat binta wound infection 81477556 T81.40XA new [id number] MD Jaswinder [facility] [address] [place] [phone] [id number] 01/11/2022 15:09:03 01/11/2022 16:18:21 Overactive urinary bladder 469719567 N32.81 improved stable Urge incon tinence of urine 26480522 N39.41 improved stable [id number] MD Jaswinder KemproWo[address] [phone] 01/11/2022 14:22:35 01/11/2022 15:37:45 Overactive urinary bladder 542896306 N32.81 improved stable [id number] ROSALBA MARRUFOro[facility] [address] [phone] 0 04/14/2022 09:53:07 04/14/2022 14:12:13 Increased frequency of urination 261089165 R35.0 acute, worse [id number] MD Jaswinder KemproWo[address] [phone] 01/31/2023 09:28:28 01/31/2023 09:49:59 Overactive urinary bladder 207152297 N32.81 improved stable Urge incon tinence of urine 18264154 N39.41 improved stable Postmenopa usal bleeding 86825030 N95.0 new [id number] MD Trish KempAryan [address] [phone] 01/31/2023 08:53:01 01/31/2023 09:37:23 Overactive urinary bladder 557383984 N32.81 improved stable [id number] MD Trish KempAryan [address] [id number] 04/02/2024 09:12:35 04/02/2024 16:26:19 Overactive urinary bladder [id number] N32.81 improved stable Urge incon tinence of urine [id number] N39.41 improved stable [id number] MD Trish Kemp_Woo [facility] [address] [place] [address] [place] [phone] [id number] 04/02/2024 09:08:16 04/03/2024 10:12:33 Overactive urinary bladder [id number] N32.81 improved stable [id number] [facility] [address] [phone] 01/18/2025 10:10:34 01/21/2025 13:46:23 Overactive urinary bladder [id number] N32.81 improved stable Urge incon tinence of urine 13809008 N39.41 improved stable [id number] MD Trish KempAryan [address] [phone] 01/18/2025 10:07:22 01/24/2025 17:52:22 Overactive urinary bladder [id number] N32.81 improved stable Health Concerns Section Related Observation LastModified by Organization Detai ls LastModified Time None Recorded Concern Status LastModified by Organization Details LastModified Time None Recorded Advance Directives Directive N: Payers Insurance Date Sequence Insurance Name Policy Number Policy Louie Covered Member ID Louie Member ID Guarantor Name 01/24/2025 1 [facility]: (MEDICARE REPLACEMENT PPO) [id number] Simi Morgan'Ol son [id number] Simi Kevin 01/15/2025 1 [facility] [id number] Simi Morgan [id number] Simi Kevin Notes Date Note Type Note [...] Pulse width changed Rate chaanged Resolution changed Roverto Ferraro [facility] [place] [facility] [place] [facility] 01/31/2023 09:36:59 01/31/2023 text/html ROS as noted in the HPI s/p interstim revision 11/25/21not on meds for her bladder either Overactive Bladder Pathway Questionnaire:Uses the restroom:5times per day Uses the restroom (nighttime): [id number] Accidents:.25per day Pads: using.5per day Symptoms since [...] Incontinence Impact Questionnaire (IIQ-7):[0] Ability to do heating element repairer (cooking, housecleaning):Not at All[0] Physical recreation such as walking, or other exercise:Not at All[0] Ability to attend entertainment activities (movie, concerts):Not at All[0] Ability to travel by car more than 30 minutes from home:Not at All[0] Participation in social activities outside your home:Not at All[1] Emotional health (nervousness, depression, etc):Slightly[1] [place] frustrated:Slightly Continence Function Questionnaire:[2] Urinary control:Occasional dribbling[2] Leaked urine:About once a week or less often 01-31-23sp interstim reivison 2021 with carina today with roverto for programmingnot on meds Overactive Bladder Pathway Questionnaire: Uses the restroom:7times per day Uses the restroom (daytime): [id number] Uses the restroom (nighttime): [id number] Accidents:0per day Pads: [id number] day Symptoms since last appointment:85%Better Happy with [...] Impact Questionnaire (IIQ-7): [0] Ability to do heating element repairer (cooking, housecleaning):Not at All [0] Physical recreation such as walking, or other exercise:Not at All [0] Ability to attend entertainment activities (movie, concerts):Not at All [0] Ability to travel by car more than 30 minutes from home:Not at All [0] Participation in social activities outside your home:Not at All [0] Emotional health (nervousness, depression, etc):Not at All [0] [place] frustrated:Not at All Continence Function Questionnaire: [2] Urinary control:Occasional dribbling [2] Leaked urine:About once a week or less often [2] How big of a problem urinary function has been:Very small problem Jillian Simmons MD [address] [place] [address],[address] [place] [address], [phone], [facility] 01/31/2023 09:47:06 04/02/2024 text/html Overactive [...] in the lower abdominal or genital area Roverto Ferraro [facility] 04/02/2024 10:16:14 04/02/2024 text/html ROS as noted in the HPI s/p interstim revision 11/25/21not on meds for her bladder either Overactive Bladder Pathway Questionnaire:Uses the restroom:5times per day Uses the restroom (nighttime): [id number] Accidents:.25per day Pads: using.5per day Symptoms since [...] Incontinence Impact Questionnaire (IIQ-7):[0] Ability to do heating element repairer (cooking, housecleaning):Not at All[0] Physical recreation such as walking, or other exercise:Not at All[0] Ability to attend entertainment activities (movie, concerts):Not at All[0] Ability to travel by car more than 30 minutes from home:Not at All[0] Participation in social activities outside your home:Not at All[1] Emotional health (nervousness, depression, etc):Slightly[1] [place] frustrated:Slightly Continence Function Questionnaire:[2] Urinary control:Occasional dribbling[2] Leaked urine:About once a week or less often 01-31-23sp interstim revison 2021 with meseen today with roverto for programmingnot on meds Overactive Bladder Pathway Questionnaire:Uses the restroom:7times per day Uses the restroom (daytime): [id number] Uses the restroom (nighttime): [id number] Accidents:0per day Pads: [id number] day Symptoms since last appointment:85% BetterHappy with [...] Incontinence Impact Questionnaire (IIQ-7):[0] Ability to do heating element repairer (cooking, housecleaning):Not at All[0] Physical recreation such as walking, or other exercise:Not at All[0] Ability to attend entertainment activities (movie, concerts):Not at All[0] Ability to travel by car more than 30 minutes from home:Not at All[0] Participation in social activities outside your home:Not at All[0] Emotional health (nervousness, depression, etc):Not at All[0] [place] frustrated:Not at All Continence Function Questionnaire:[2] Urinary [...] the timeno utis/hematuria Jillian Simmons MD [address] [facility],[address], [place], [phone], [facility] 04/02/2024 10:16:33 01/18/2025 text/html Current [...] Pulse width changed Rate chaanged Resolution changed Roverto robin [facility] 01/18/2025 11:57:57 01/18/2025 text/html 01/18/25:Patient presents to follow up for OABShe was last seen on 04/02/24. Happy with current treatment plan.S/p InterStim revision 11/25/[address] Simmons. Saw Roverto this AM. Did not change anything Current medication(s): noneShe wakes up 1 times a night. She voids 6 times a day. She uses 1 pads per day.Bowels: no issues, looser stools and going to meet with her pcp soon.Fluid intake: 100 oz water/day, 24-30 oz coffee. RASHAD-6):5, (IIQ-7):3, Continence Function Questionnaire:7 Zhane robin [facility] 01/18/2025 11:15:22 OBGyn Episode No OBEpisode recorded.
[2025-09-01 03:15] VITALS: BP 126/64; PULSE 59; RESP 16; TEMP 36.3; O2SAT 100; BMI 28.3
--- NOTE | 2025-09-01 03:25 | ED.GENADULT ---
HPI - General Adult General Time Seen by Provider: 03:25 Date Seen: 09/01/25 Chief complaint: Diarrhea Stated complaint: blood in stool Time Seen by Provider: 09/01/25 03:25 Source: patient and family Mode of arrival: ambulatory History of Present Illness HPI narrative: Simi is a 64-year-old female who has a past medical history of depression, anxiety, diabetes who presents to the emergency department for evaluation of diarrhea and blood in her stool. Patient reports that symptoms started yesterday morning around 10:00 a.m. she had sudden onset of urgency to have a bowel movement. Patient reports multiple episodes of loose watery diarrhea throughout the day along with intermittent lower abdominal cramping. Patient reports that around 5:00 p.m. she had an episode of diarrhea with a little bit of blood in her stool. Patient states that she went to bed and woke up this morning with recurrent episode of lower abdominal cramping, diarrhea, however this time noted lots of blood in her stool. Patient reports bright red blood in her stool. Denies any fever, chest pain, shortness of breath, nausea, vomiting, dysuria, hematuria. Patient reports 1 episode of similar symptoms in the past but states it was not as bad. Patient does take 81 mg aspirin daily. Reports last colonoscopy was 3-4 years ago and reports it was normal. Patient denies any recent antibiotic use, no recent hospitalization. Patient states that they travel to [place] for the holidays recently. No sick contacts, no other complaints. Related Data Home Medications ?Medication ?Instructions ?Recorded ?Confirmed atorvastatin 20 mg tablet 20 mg PO DAILY 02/19/23 09/01/25 bupropion HCl 150 mg 24 hr tablet, 150 mg PO DAILY 02/19/23 09/01/25 extended release fluoxetine 40 mg capsule 40 mg PO QAM 02/19/23 09/01/25 omeprazole 40 mg capsule,delayed 40 mg PO DAILY 02/19/23 09/01/25 release cetirizine 10 mg capsule (Zyrtec) 10 mg PO QDAY PRN 05/03/24 09/01/25 latanoprost 0.005 % eye drops 1 drp ophthalmic (eye) 05/03/24 04/20/25 aspirin 81 mg tablet,delayed 81 mg PO QDAY 10/03/24 09/01/25 release (Adult Aspirin Regimen) FeSO4 PO DAILY 04/18/25 04/20/25 Allergies Allergy/AdvReac Type Severity Reaction Status Date / Time metronidazole (From Flagyl) Allergy Mild Hives Itchy Verified 09/01/25 03:21 adhesive tape Allergy Unknown Verified 09/01/25 03:21 fluconazole (From Diflucan) Allergy Verified 09/01/25 03:21 Review of Systems Narrative: Past medical history, past surgical history, medications, allergies, family history, and social history were reviewed with the patient. No additional pertinent items. A medically appropriate review of systems was performed with pertinent positives and negatives noted in HPI, all other systems negative. [facility] Medical History Alcoholism ?F10.20 - Alcohol dependence, uncomplicated (ICD-10) History of abnormal cervical Pap smear ?Z87.42 - Personal history of other diseases of the female genital tract (ICD-10) Surgical History History of wisdom tooth extraction (1981) ?K08.409 - Partial loss of teeth, unspecified cause, unspecified class (ICD-10) History of endometrial ablation (2005) ?Z98.890 - Other specified postprocedural states (ICD-10) History of bladder suspension procedure (2005) ?Z98.890 - Other specified postprocedural states (ICD-10) ?Z87.448 - Personal history of other diseases of urinary system (ICD-10) Family History Son Asthma Paternal Grandmother Diabetes Father Coronary artery disease, Onset Age: 48 Lung cancer High blood pressure Alcohol dependence Mother High cholesterol High blood pressure Macular degeneration Alzheimers disease Maternal Grandmother Macular degeneration Brother Stroke, Onset Age: 36 Social History Smoking Status: Former smoker Do you use any of these nicotine containing products: None Second hand tobacco smoke exposure: No How often do you have a drink containing alcohol: never How often do you have six or more drinks on one occasion: Never AUDIT-C Alcohol total score: 0 Non-prescribed substance use: denies use service: No Exam Narrative: Exam Narrative: General: Afebrile, no acute distress HEENT: Normocephalic, atraumatic, conjunctiva normal. MMM Neck: non-tender, supple Cardio: regular rate. regular rhythm Resp: Normal work of breathing, no respiratory distress, lungs clear bilaterally, no wheezing, rhonchi, rales Chest/Back: no visual signs of trauma, no midline tenderness, no CVA tenderness Abdomen: soft, non distension, no tenderness, no peritoneal signs Neuro: alert and fully oriented. CN II-XII grossly intact. Grossly normal strength and sensation in all extremities. MSK: no deformities. Normal range of motion Integumentary/Skin: no rash visualized, normal color Psych: normal affect, normal behavior Const: Vital Signs, click to edit/add: Vital Signs - 24 hr 09/01/25 03:15 Temperature 97.3 F L Pulse Rate [Right Femoral] 59 L Respiratory Rate 16 Blood Pressure [Ri ght Upper Arm] 126/64 Pulse Oximetry 100 Oxygen Delivery Me thod Room Air Course Vital Signs Vital signs: Initial Vital Signs Temperature 97.3 F L 09/01/25 03:15 Temperature Source Temporal Artery Scan 09/01/25 03:15 Pulse Rate 59 L 09/01/25 03:15 Pulse Rhythm Irregular 09/01/25 03:15 Respiratory Rate 16 09/01/25 03:15 Blood Pressure 126/64 09/01/25 03:15 Blood Pressure Mean 84 09/01/25 03:15 Blood Pressure Position Sitting 09/01/25 03:15 Pulse Oximetry 100 09/01/25 03:15 Oxygen Delivery Method Room Air 09/01/25 03:15 Vital Signs Temperature 97.3 F L 09/01/25 03:15 Pulse Rate 59 L 09/01/25 03:15 Respiratory Rate 16 09/01/25 03:15 Blood Pressure 126/64 09/01/25 03:15 Pulse Oximetry 100 09/01/25 03:15 Oxygen Delivery Method Room Air 09/01/25 03:15 Temperature 97.3 F L 09/01/25 03:15 Pulse Rate 59 L 09/01/25 03:15 Respiratory Rate 16 09/01/25 03:15 Blood Pressure 126/64 09/01/25 03:15 Pulse Oximetry 100 09/01/25 03:15 Oxygen Delivery Method Room Air 09/01/25 03:15 Medications Administered Medications: Generic Name Dose Route Start Last Admin Trade Name Francisca PRN Reason Stop Dose Admin Sodium Chloride 1,000 mls @ 1,000 mls/hr 09/01/25 04:30 09/01/25 04:26 0.9 % Sodium Chloride 1000 Ml IV 09/01/25 05:29 1,000 mls/hr .Q1H LONNIE Administration Medical Decision Making MDM Narrative Medical decision making narrative: Simi is a 64-year-old female who has a past medical history of depression, anxiety, diabetes who presents to the emergency department for evaluation of diarrhea and blood in her stool. Upon arrival patient is nontoxic appearing, afebrile, no distress. Patient hemodynamically stable vital signs within normal limits. Differential diagnosis includes but is not limited to viral illness versus colitis versus gastroenteritis versus diverticulitis versus mass among others. Upon arrival comprehensive labs, CT imaging performed. Patient declined anything for symptoms at this time. I reviewed comprehensive labs which are remarkable for white blood cell count 10.7, hemoglobin 10.8 (prior hemoglobin on 04/18/2025 was 11.4), lactic acid normal 1.1 I personally reviewed interpreted CT scan abdomen pelvis which demonstrates colitis of the descending colon. (submucosal edema with mucosal hyper enhancement). No other dilator inflamed bowel. Normal appendix, mild proximal stool burden. I discussed results with patient. At this time would recommend conservative management, supportive care for acute colitis. Recommend oral hydration, soft/bland diet and slowly advance as tolerated. Continue to monitor stools. Encouraged close outpatient follow-up if ongoing symptoms would consider colonoscopy. Strict return precautions discussed if high fever, severe pain, persistent heavy rectal bleeding, worsening symptoms. Patient understands and agrees the plan. Medical Records Medical records reviewed: Yes I reviewed the patient's medical records Lab Data Lab results reviewed: Yes I reviewed the patient's lab results Labs: Lab Results 09/01/25 Range/Units 03:36 WBC 10.71 (4.50-11.00) K/uL RBC 3.72 L (4.00-5.20) m/uL Hgb 10.8 L (12.0-16.0) gm/dL Hct 33.1 (33.0-51.0) % MCV 89 (80-100) fL MCH 29 (26-34) pg MCHC 33 (32-36) gm/dL RDW Coeff of Yesenia 13.0 (11.5-15.5) % Plt Count 302 (140-440) K/uL Neut % (Auto) 74.8 H (42.0-72.0) % Lymph % (Auto) 15.5 L (20-44) % [place] % (Auto) 7.3 (0.0-11.0) % Eos % (Auto) 1.9 (0.0-7.0) % Baso % (Auto) 0.3 (0.0-3.0) % Neut # (Auto) 8.00 H (1.7-7.0) K/uL Lymph # (Auto) 1.70 (0.90-2.90) K/uL [place] # (Auto) 0.80 (0.00-0.90) K/UL Eos # (Auto) 0.20 (0.00-0.50) K/uL Baso # (Auto) 0.03 (0.00-0.30) K/uL Abs Immat Gran (auto) 0.02 (0.00-0.30) K/uL Imm/Tot Granulo (auto) 0.2 % Sodium 132 L (135-149) mmol/L Potassium 3.7 (3.6-5.1) mmol/L Chloride 94 L (96-114) mmol/L Carbon Dioxide 25 (20-32) mmol/L Anion Gap 13 (7-15) mEq/L BUN 10 (7-30) mg/dL Creatinine 0.8 (0.5-1.5) mg/dL Estimated Creat Clear 48.43 Estimated GFR 82 ml/min Glucose 147 H (60-115) mg/dL Lactate 1.1 (0.5-1.9) mmol/L Calcium 8.8 (8.4-10.6) mg/dL Total Bilirubin 0.3 (0.1-1.5) mg/dL AST 23 (12-35) U/L ALT 21 (4-35) U/L Alkaline Phosphatase 102 (40-150) U/L Total Protein 6.7 (6.0-8.3) g/dL Albumin 4.1 (3.3-5.0) g/dL Lipase 101 (23-300) U/L POC Creatinine 0.9 (0.6-1.3) mg/dl Imaging Data CT scan - abdomen: Attestation: I have reviewed the pertinent imaging results. Radiologist's impression: Patient: Simi Linton MR#: [id number] : 1960 Acct:[id number] Loc: ED Service Date: 09/01/[address]: Ordering Physician: Renee Campoverde M.D. Date of Service: 09/01/25 Procedure(s): CT abdomen pelvis w con Accession Number(s): [id number] cc: Renee Campoverde M.D.; Provider,Not a Local~ For Patients: As a result of the Century Cures Act, medical imaging exams and procedure reports are released immediately into your electronic medical record. You may view this report before your referring provider. If you have questions, please contact your health care provider. INDICATION: Abdominal pain and blood in stool. COMPARISON: None. TECHNIQUE: CT of the abdomen and pelvis with intravenous contrast. Multiplanar axial, coronal, and sagittal reformats were reconstructed. Contrast: 81 mL Isovue 370. FINDINGS: Lung bases: Normal. Liver: Normal. No mass. Gallbladder and bile ducts: Normal gallbladder. No bile duct dilation. Pancreas: Normal. Spleen: Normal. Adrenal glands: Normal. Kidneys: Normal parenchyma. There is a 6 millimeter right inferolateral renal cysts with some overlying cortical volume loss. No calculi. No urinary tract dilation. Urinary bladder: Normal. Pelvis: No cyst or mass. Vessels: Minimal atherosclerosis. Widely patent mesenteric arteries and veins. Bowel: Submucosal edema with mucosal hyperenhancement from the splenic flexure to the rectum. No other dilated or inflamed bowel. Normal appendix. Mild proximal stool burden. Lymph nodes: No adenopathy. Peritoneum: No ascites. No free air. Abdominal wall: No hernia. Bones: No fractures. No focal worrisome bone lesions. Battery pack in the left flank with a right-sided sacral nerve stimulator. IMPRESSION: Colitis of the descending colon, mild. No ischemia. No obstruction. No findings specific to inflammatory bowel disease. Please note that all CT scans at this facility use dose modulation, iterative reconstruction, and/or weight-based dosing when appropriate to reduce radiation dose to as low as reasonably achievable. Dictated by Bebe Shaikh MD @ 09/01/2025 4:41:57 AM (Electronically Signed) Discharge Plan Discharge Clinical Impression: Colitis, Abdominal pain, diffuse, BRBPR (bright red blood per rectum) Patient Disposition: Home, Self-Care Condition: Stable Instructions: Colitis (ED) Additional Instructions: Please follow-up with your primary care provider in the next 3-5 days for further evaluation and follow-up. Please call to schedule appointment. If ongoing symptoms you may need additional outpatient testing (colonoscopy). Please rest, drink plenty of fluids. Please start with a soft/bland diet and slowly advance as tolerated over the next 24-48 hours. Please continue to monitor stools. Return to the emergency department if you develop persistent high fever, severe abdominal pain, persistent vomiting, severe/persistent heavy rectal bleeding, worsening symptoms. It was a pleasure taking care of you today. We hope you feel better soon. Prescriptions: No Action latanoprost 0.005 % drops 1 drp ophthalmic (eye) Zyrtec 10 mg capsule 10 mg PO QDAY PRN aspirin [Adult Aspirin Regimen] 81 mg tablet,delayed release (DR/EC) 81 mg PO QDAY FeSO4 PO DAILY Patient Comments: Iron tab daily fluoxetine 40 mg capsule 40 mg PO QAM atorvastatin 20 mg tablet 20 mg PO DAILY omeprazole 40 mg capsule,delayed release(DR/EC) 40 mg PO DAILY bupropion HCl 150 mg tablet extended release 24 hr 150 mg PO DAILY Follow Up/Referrals: Provider,Not a Local [Primary Care Provider, Family Practice] Stand Alone Forms: [employer] Info Instructions
[2025-09-01 03:45] LABS: Lactate* 1.1 mmol/L (0.5-1.9)
[2025-09-01 03:46] LABS: Hematocrit* 33.1 % (33.0-51.0); Hemoglobin* 10.8 gm/dL (12.0-16.0); Immature Granulocytes Abs Auto 0.02 K/uL (0.00-0.30); Immature Granulocytes Pct Auto 0.2 %; Mean Corpuscular HGB Conc 33 gm/dL (32-36); Mean Corpuscular Hemoglobin 29 pg (26-34); Mean Corpuscular Volume 89 fL (80-100); RDW Coefficient of Variation % 13.0 % (11.5-15.5); Red Blood Count* 3.72 m/uL (4.00-5.20); White Blood Count* 10.71 K/uL (4.50-11.00)
[2025-09-01 03:47] LABS: Lymphocytes Absolute Auto 1.70 K/uL (0.90-2.90); Slide Review Reflex No
[2025-09-01 04:18] LABS: Albumin* 4.1 g/dL (3.3-5.0); Chloride* 94 mmol/L (96-114); Potassium* 3.7 mmol/L (3.6-5.1); Sodium* 132 mmol/L (135-149)
[2025-09-01 04:20] LABS: Blood Urea Nitrogen* 10 mg/dL (7-30); Creatinine* 0.8 mg/dL (0.5-1.5); Creatinine, Point-of-Care* 0.9 mg/dl (0.6-1.3); Est. Creatinine Clearance* 48.43; Estimated Glomerular Filt Rate 82 ml/min
[2025-09-01 04:21] LABS: Alanine Aminotransferase* 21 U/L (4-35); Alkaline Phosphatase* 102 U/L (40-150); Anion Gap 13 mEq/L (7-15); Aspartate Amino Transferase* 23 U/L (12-35); Bilirubin Total* 0.3 mg/dL (0.1-1.5); Calcium* 8.8 mg/dL (8.4-10.6); Carbon Dioxide* 25 mmol/L (20-32); Glucose* 147 mg/dL (60-115); Total Protein* 6.7 g/dL (6.0-8.3)
== END 2025-09-01 05:05 | disposition home or self-care (01) ==
PROVIDERS: Emergency Provider Emergency Medicine
DX: K52.9 Noninfective gastroenteritis and colitis, unspecified (principal); Z79.82 Long term (current) use of aspirin
CPT/HCPCS: 36415; 74177; 80053; 82565; 83605; 83690; 85025; 96360; 99284; 99285; J7030; Q9967